=== PATIENT | male | born 1945 | race Caucasian/White ===

== ENCOUNTER 2018-02-21 10:03 | Inpatient (IN) | payer OTHER ==
[~2018-02-21] VITALS: Ht 170.2 cm; Wt 83.8 kg
--- NOTE | ~2018-02-21 | EKG ---
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
--- NOTE | ~2018-02-21 | PLAN ---
[facility] [place] [address] REHAB UNIT PLAN OF CARE Name: ALEXI CAMPBELL Room #: 504-1 ADM IN M.R.#: [id number] Admission: 02/21/18 Attend Phys: Emerson Coker MD Discharge: Date of : 43 Report #: [id number] THIS REPORT FOR: //name// CC: Emerson Coker [facility] unknown DATE OF SERVICE: 02/22/2018 POST-ADMISSION PHYSICIAN EVALUATION HISTORY OF PRESENT ILLNESS: The patient is a 72-year-old male who has a history of coronary artery disease with prior coronary artery bypass grafting, end-stage renal disease, on peritoneal dialysis, hyperlipidemia, peripheral neuropathy due to type 2 diabetes mellitus, anemia of chronic disease. He has a history of a stroke, hemorrhagic right thalamus, and underwent recent rehabilitation for this. He was able to return back home. He then began developing worsening tremoring with myoclonic jerking. He was admitted to [facility]. This was thought to be medication induced. He says his Keppra and Neurontin have now been stopped and he has been taken off his corticosteroids. He is showing improvement in the myoclonic jerking. He was noted to have a significant decline further in his functional mobility and ADLs with cognitive and communication concerns as well. He has now been admitted for acute in-hospital inpatient rehabilitation from [facility]. For further information regarding past medical history, social history, etc., please see the full admission note dictation by Tina Chou, nurse practitioner. MEDICATIONS: Please see the full medication listing. The Hospitalist Service has been involved. He was noted to be initially hypertensive upon admission. SOCIAL HISTORY: As noted above. He does live with his , 13 steps in. He has had 4 falls. Apparently, he will try to pickler helper something and then he will lose his balance and noted that he will fall onto his bottom. REVIEW OF SYSTEMS: The tremoring has more lately involved the left hand. No current complaints of chest pain, shortness of breath, or abdominal discomfort. PHYSICAL EXAMINATION: GENERAL: He is a pleasant 72-year-old white male, no obvious distress. He is alert, follows basic commands. VITAL SIGNS: Last recorded temperature 98.2, pulse 60, respirations 20, blood pressure 136/55. HEENT: Eyes: PERRL, EOMs full. Facies appeared symmetric. CHEST: Sounded clear to auscultation. CARDIAC: Regular rate and rhythm. ABDOMEN: Bowel sounds positive, nontender. Peritoneal dialysis catheter. NEUROLOGIC: Upper extremity, he does [place] [address] REHAB UNIT PLAN OF CARE Name: ALEXI CAMPBELL Room #: 504-1 [facility] IN ..#: [id number] Admission: 02/21/18 Attend Phys: Emerson Coker MD Discharge: Date of : 43 Report #: [id number] Functional range of motion. Strength is probably a grade 4-/5. No focal calf swelling. Needing assistance for basic functional mobility skills. ASSESSMENT: 1. Myoclonic jerking. 2. Recent right thalamic hemorrhage. 3. End-stage renal disease, on peritoneal dialysis. 4. Coronary artery disease status post coronary artery bypass graft. 5. Peripheral arterial disease. 6. Diabetes mellitus type 2 with peripheral neuropathy. 7. Hypertension. 8. Hyperlipidemia. 9. Obstructive sleep apnea, on CPAP. 10. Anemia of chronic disease. PLAN: From a post-admission physician evaluation perspective, there are no relevant changes since the preadmission screening. Please see the above review of prior and current medical and functional conditions and comorbidities. Please see the patient's previous and current functional status. As far as risk of complications, the patient has multiple medical comorbidities as noted above. The initial plan of care involves the interdisciplinary acute inpatient rehabilitation program with the goal of maximizing the patient's functional independence so that he can hopefully return back to his prior living situation. Measurable functional goals would be for the patient to become modified independent with transfers, mobility and ADLs as well as improvement with cognition. We will need to further assess what type of gait aids he needs. Prognosis is reasonably good with estimated length of stay probably at least 10 days to 2 weeks and potentially longer if warranted. Potential barriers would include his multiple medical comorbidities and decreased functional status. The patient meets diagnostic criteria for an acute in-hospital inpatient rehabilitation stay. He meets the medical necessity criteria and we will have the agricultural consultant physicians continue to follow. He does have the tolerance for therapies and has appropriate discharge goals back to the home setting. <ELECTRONICALLY SIGNED> By: Emerson Coker MD 03/02/18 1319 1127 1233 Emerson Coker MD /nt
--- NOTE | ~2018-02-21 | HC ---
[facility] [place] [address] CONSULTATION Name: ALEXI CAMPBELL Room #: 504-1 ADM IN M.R.#: [id number] Admission: 02/21/18 Attend Phys: Emerson Coker MD Discharge: Date of : 43 Report #: [id number] THIS REPORT FOR: //name// CC: Emerson [facility] unknown DATE OF SERVICE: 02/22/2018 REASON FOR CONSULTATION: End-stage renal disease, on PD. HISTORY OF PRESENT ILLNESS: This 72-year-old gentleman has been on peritoneal dialysis for the last 3 months. Last month, he had an acute CVA with some debility, which resolved without sequelae. He was in the hospital, became weak, went over to [facility], was improving, was home for 4 days, became weak again, was readmitted to the hospital for a week and now is here for more rehabilitation and currently is feeling stronger. He is up and about. He is still a little bit weak compared to his usual. PAST MEDICAL HISTORY: Longstanding diabetes mellitus and hypertension with progressive renal disease, end-stage renal disease and now on dialysis this year. He has had previous coronary artery disease, coronary bypass that was 29 years ago. He has had no subsequent problems with chest pain, angina, stents, etc. Diabetes has been complicated by little bit of peripheral neuropathy in his feet. No known retinopathy. He has also had some difficulty with hypertension. HOME MEDICATIONS: Include allopurinol 100 mg daily, atenolol 50 mg daily, cholecalciferol 1000 units daily, Plavix 75 mg daily, Cymbalta 20 mg daily, Procrit weekly, furosemide 80 mg b.i.d., insulin, renal vitamins, rosuvastatin 20 mg daily, Renvela 2400 mg with meals t.i.d., resveratrol 1000 mg at bedtime. I believe he takes insulin as well. FAMILY HISTORY: Positive for heart disease in both parents. His father also had diabetes. SOCIAL HISTORY: Remote smoker. No substantial alcohol for the most part, retired. REVIEW OF SYSTEMS: GENERAL: He has been feeling reasonably well. EYES: Vision okay with corrective lenses. ENT: Hearing okay, swallows okay. No mouth sores. ENDOCRINE: Positive for the diabetes. RESPIRATORY: No shortness of breath, pleuritic pain. CARDIAC: No chest pain, angina. Occasional leg swelling. GASTROINTESTINAL: No nausea, vomiting, diarrhea or bloody stools. [address] [address] CONSULTATION Name: ALEXI CAMPBELL Room #: 504-1 [facility] IN ..#: [id number] Admission: 02/21/18 Attend Phys: Emerson Coker MD Discharge: Date of : 43 Report #: [id number] GENITOURINARY: Continues to make reasonable amounts of urine without dysuria, hematuria or renal stones. NEUROLOGIC: He has got a little bit of numbness in the feet and a little bit of diffuse weakness. MUSCULOSKELETAL: No arthritis. PSYCHIATRIC: No depression or anxiety. PHYSICAL EXAMINATION: GENERAL: Bright, lucid, well-appearing gentleman, in good spirits. SKIN: Unremarkable. SKELETAL: Well developed, well nourished. HEENT: Extraocular movements are full. No scleral icterus. Hearing and vision intact. Mucous membranes moist. Tongue, buccal mucosa benign. NECK: Supple, without carotid bruits. CHEST: Completely clear to auscultation. HEART: Regular without murmurs, gallops or rubs. ABDOMEN: Soft and nontender. His exit site looks good. EXTREMITIES: Show trace peripheral edema. NEUROLOGIC: Grossly intact. LABORATORY DATA: Phosphorus has not been done. Hemoglobin is 9.8, platelets 614. Sodium 137, potassium 4.1, chloride 100, bicarbonate 25, creatinine 8.3, magnesium 2.8, calcium 9.2. ASSESSMENT AND PLAN: 1. End-stage renal disease. We will continue on peritoneal dialysis with overnight 1.5%, may need some hypertonic exchanges if he does well and also help with his hypertension. I will re-add amlodipine, which he has been on in the past. Continue on the atenolol, which he has been on currently. We will follow carefully along. 2. Hypertension, as above. Might need some ultrafiltration. 3. Diabetes mellitus. 4. History of cerebrovascular accident, almost totally recovered. 5. History of coronary bypass. <ELECTRONICALLY SIGNED> By: Jose Woods MD 03/03/18 1107 0929 1146 Jose Woods MD /nt
--- NOTE | ~2018-02-21 | EEG ---
[facility] [place] [address] ELECTROENCEPHALOGRAM Name: ALEXI CAMPBELL Room #: 504-1 [facility] IN M.R.#: [id number] Admission: 02/21/18 Attend Phys: Emerson Coker MD Discharge: 03/04/18 Date of : 43 Report #: [id number] THIS REPORT FOR: //name// CC: Emerson Coker [facility] unknown DATE OF SERVICE: 02/25/2018 This patient is being evaluated for the possibility of seizure. EEG was done by placing the electrode by standard 10-20 system of electrode placement. Both referential and sequential montages were used for recording. Background activity in this patient's EEG is about 9 Hz and 30 microvolts. That is a symmetrical activity. The patient went to sleep that is associated with bilaterally symmetrical sleep spindle and vertex sharp waves. Photic stimulation is unremarkable. Throughout the record, no active epileptiform activity was noticed. IMPRESSION: This patient's EEG does not demonstrate any clear-cut epileptiform activity. <ELECTRONICALLY SIGNED> By: Abilio Goins MD 03/05/18 1712 185 58 Abilio Goins MD /nt
--- NOTE | ~2018-02-21 | H ---
[facility] [place] [address] HISTORY AND PHYSICAL Name: ALEXI CAMPBELL Room #: 504-1 ADM IN M.R.#: [id number] Admission: 02/21/18 Attend Phys: Emerson Coker MD Discharge: Date of : 43 Report #: [id number] THIS REPORT FOR: //name// CC: Emerson Coker [facility] unknown DATE OF SERVICE: 02/21/2018 HISTORY OF PRESENT ILLNESS: This is a 72-year-old male. He was admitted to acute Inpatient Rehabilitation Unit from [facility]. He presented to [facility] initially with significant weakness and increase in tremors diagnosed as myoclonus and asterixis that was felt secondary to gabapentin and Keppra. Those medications were discontinued. The myoclonic jerking has significantly improved since then. The patient also has history of hemorrhagic stroke in the right thalamus that was recent and he went to [facility] after he had been home for approximately 2 weeks prior to presenting back to [facility]. The patient is now here for physical, occupational and speech therapies. Upon arrival to the unit, patient was noted to be very hypertensive. A rapid response team was called and he was given 2 doses of IV hydralazine approximately 10 minutes apart. Blood pressure initially was over 200 systolic and improved into the 160s systolic. He was asymptomatic, denying any nausea, vomiting, headache, dizziness, chest pain or shortness of air. Today, the patient's blood pressure is well controlled in the 130s/80s. He denies any headache, dizziness, cough, nausea, shortness of breath, constipation, dysuria. He does have pain in his great toe and 3 toes on the right foot that is secondary to peripheral neuropathy. He denies numbness or tingling. PAST MEDICAL HISTORY: Coronary artery disease status post CABG; end-stage renal disease, on peritoneal dialysis; hyperlipidemia; peripheral arterial disease; peripheral neuropathy; type 2 diabetes; anemia of chronic disease; benign prostatic hypertrophy; hemorrhagic stroke in the right thalamus; hypertension; gout; folic acid deficiency; depression. HABITS: He is a nonsmoker, nondrinker. No illicit drug use. SOCIAL HISTORY: The patient is a full code. He lives in a house with his . There are approximately one flight of stairs from the garage into the main living of the house. His bedroom and bathroom and all living is on one floor. Since his stroke, he had been utilizing a front-wheeled walker at home. He reports that he has had 4 falls according to his . He denies injury with those fall. Prior to his stroke, he was requiring no assistive device. Since his stroke, he has been able to perform ADLs independently. His and him share the IADL responsibilities. He has not driven since his stroke, but reports he would like to get back to driving eventually. [facility] [address] [place] [address] HISTORY AND PHYSICAL Name: ALEXI CAMPBELL Room #: 504-1 ADM IN M.R.#: [id number] Admission: 02/21/18 Attend Phys: Emerson Coker MD Discharge: Date of : 43 Report #: [id number] ALLERGIES: No known drug allergies. CURRENT MEDICATIONS: Cymbalta 20 mg daily, Plavix 75 mg daily, vitamin D 1000 units daily, allopurinol 100 mg daily, Renvela 2400 mg with meals, Lasix 80 mg twice a day, metoprolol 25 mg twice a day, Humalog before meals and at bedtime sliding scale insulin, Lantus 24 units subQ at bedtime, Tylenol 500 mg q. 4 hours p.r.n. pain, Compazine 5 mg q. 4 hours p.r.n. nausea, hydralazine 10 mg q. 4 hours p.r.n. hypertension. REVIEW OF SYSTEMS: Remainder of his 14-point review of systems is negative except as listed in HPI. PHYSICAL EXAMINATION: VITAL SIGNS: 135/55, respirations 20, pulse of 68, temperature 98.2. He is 95% oxygen on room air. GENERAL: He is awake, alert. He is oriented x 3. He appears in no acute distress. HEAD: Normocephalic. EYES: EOMs are intact. No icterus. ENT: No sinus tenderness. CHEST: Lungs are diminished throughout. No crackles. CARDIAC: Regular rate and rhythm, S1, S2, no murmur. ABDOMEN: Bowel sounds are positive, soft, nontender. Peritoneal dialysis catheter in place. GENITOURINARY: No CVA tenderness. EXTREMITIES: Trace ankle edema. Negative Homans sign. Able to lift lower extremities antigravity. Functional range of motion bilateral upper and lower extremities. Asterixis and essential tremor especially in the left hand. [employer] appears equal bilateral. Sensation appears grossly intact. He has no facial droop. He has no slurred speech. SKIN: Warm, dry and intact. LABORATORY DATA: From 02/22/2018, WBC is 8.3, hemoglobin 9.8, hematocrit 30.1, platelets 614. Sodium 137, potassium 4.1, BUN 55, creatinine 8.3, glucose 167. Troponin from 02/21/2018 negative. CPK 57 from 02/21/2018. ASSESSMENT AND PLAN: 1. Myoclonic jerking and asterixis. 2. Medical complexity with generalized debilitation. 3. Recent hemorrhagic right thalamic cerebrovascular accident. 4. End-stage renal disease, on peritoneal dialysis. 5. Uncontrolled hypertension. 6. Type 2 diabetes. 7. Premorbid peripheral neuropathy. 8. Hyperlipidemia. 9. Coronary artery disease with history of coronary artery bypass grafting. [facility] [address] [place] [address] HISTORY AND PHYSICAL Name: ALEXI CAMPBELL Room #: 504-1 ADM IN M.R.#: [id number] Admission: 02/21/18 Attend Phys: Emerson Coker MD Discharge: Date of : 43 Report #: [id number] 10. Peripheral arterial disease. 11. Obstructive sleep apnea, on home CPAP. 12. Anemia of chronic disease. PLAN: The patient will be on physical, occupational and speech therapies with his goal to return back to home. Hospitalist service is following for acute medical issues. Dr. Mcleod will see for neuropsychology testing. We will have weekly team conference. Please see extensive orders. <ELECTRONICALLY SIGNED> By: NATHAN Neumann 02/24/18 1439 1047 1152 NATHAN Neumann /nt
--- NOTE | ~2018-02-21 | HC ---
[facility] [place] [address] CONSULTATION Name: ALEXI CAMPBELL Room #: 504-1 ADM IN M.R.#: [id number] Admission: 02/21/18 Attend Phys: Emerson Coker MD Discharge: Date of : 43 Report #: [id number] THIS REPORT FOR: //name// CC: Emerson PEÑA unknown DATE OF SERVICE: 02/25/2018 CHIEF COMPLAINT: Ulceration of right fourth toe. HISTORY OF PRESENT ILLNESS: This is a 72-year-old male patient who I have been asked to see on the rehab floor due to an ulceration of his right fourth toe. He has had some ulceration there for quite some time. He has a history of end-stage renal disease, on peritoneal dialysis. He has a history of acute CVA. He has been having some myoclonic jerks, being evaluated for that. He notes pain in the lateral three toes of the right foot for quite some time. He denies any injury. He is unaware of his vascular status. PAST MEDICAL HISTORY: Positive for longstanding history of hypertension, diabetes, mellitus, and progressive renal disease. He now requires dialysis. He has a history of coronary artery disease status post coronary artery bypass that was 29 years ago. He does have peripheral neuropathy. MEDICATIONS: Include allopurinol, atenolol, cholecalciferol, Plavix, Cymbalta, Procrit, furosemide, insulin, rosuvastatin, Renvela, Resveratrol. FAMILY HISTORY: Positive coronary artery disease in both parents, as well as diabetes in his father. SOCIAL HISTORY: The patient has a history of smoking in the past. No substantial alcohol use. REVIEW OF SYSTEMS: CONSTITUTIONAL: The patient denies fever, chills or weight loss. NEUROLOGICAL: The patient has neuropathic pain. Denies focal weakness. ENT: The patient denies earache, nasal drainage, sore throat. CARDIOVASCULAR: The patient denies chest pain, palpitation or diaphoresis. PULMONARY: The patient denies cough or shortness of breath. GASTROINTESTINAL: The patient denies nausea, vomiting or abdominal pain. ORTHOPEDIC: The patient does complain of pain in his right foot as detailed above. Other systems in a 14-point review of systems are negative. PHYSICAL EXAMINATION: VITAL SIGNS: At this time include pulse 58, respiratory rate of 18, blood [address] [address] CONSULTATION Name: ALEXI CAMPBELL Room #: [address] [place] [address] [place] [facility].#: [id number] Admission: 02/21/18 Attend Phys: Emerson Coker MD Discharge: Date of : 43 Report #: [id number] pressure 151/56, temperature 97.4. GENERAL: This is a chronically ill-appearing male patient who appears to be in no distress. HEENT: Head normocephalic. Nose and throat are clear. NECK: Supple. LUNGS: Clear. HEART: Bowel sounds present. EXTREMITIES: Demonstrate diminished distal pulses, although there was good capillary refill is a small area of eschar on the dorsal aspect of the right fourth toe. No other evidence of cellulitis or any wounds on either foot or heels. CLINICAL IMPRESSION: 1. Diabetic foot ulcerations of the right foot. 2. End-stage renal disease, requiring dialysis. 3. Diabetes mellitus with peripheral neuropathy. 4. Peripheral arterial disease by clinical exam. RECOMMENDATIONS: At this point in time, the patient has an allergy to IODINE. We will do topical skin prep to keep the eschar intact. We would not recommend debridement at this time. We will check arterial Dopplers to evaluate him for large vessel vascular disease. All questions have been answered. I do appreciate being asked to see him in consultation. <ELECTRONICALLY SIGNED> By: Candido López MD 03/03/18 0920 1436 0859 Candido López MD /nt
--- NOTE | ~2018-02-21 | HC ---
[facility] [place] [address] CONSULTATION Name: ALEXI CAMPBELL Room #: 504-1 ADM IN M.R.#: [id number] Admission: 02/21/18 Attend Phys: Emerson Coker MD Discharge: Date of : 41 Report #: [id number] THIS REPORT FOR: //name// CC: Emerson Coker [facility] unknown DATE OF SERVICE: 02/26/2018 NEUROBEHAVIORAL STATUS EXAM ATTENDING PHYSICIAN: Emerson Coker MD PROPERTY INVESTOR: Travon Mcleod, PhD CLINICAL PRESENTATION: The patient is a 72-year-old male admitted to the rehab unit at [facility] for comprehensive rehabilitation program to improve functional mobility, activities of daily living and self-care and mental status as a result of deficits from myoclonic jerking and asterixis. His diagnoses also include medical complexity with general debility; recent hemorrhagic right thalamic CVA; end-stage renal disease, on peritoneal dialysis; uncontrolled hypertension; type 2 diabetes; premorbid peripheral neuropathy; hyperlipidemia; coronary artery disease with prior coronary artery bypass grafting; peripheral artery disease; obstructive sleep apnea and anemia of chronic disease. A complete description of his medical condition and history along with medications can be found in his medical record. Neuropsychological consultation was requested to provide assistance in the assessment of cognitive and emotional status and to provide recommendations and services. Prior to this most recent stroke, he was independent with driving and instrumental activities of daily living. He is with one child. 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 There is no reported history of alcohol/drug abuse, or treatment for mental disorder. His indicates that following the stroke and upon his initial return home, he was unable to successfully walk without the use of an aide. Insight in to deficits has been poor and he has had numerous falls from impulsivity and attempting to walk without using a walker. Balance continues to be poor, but improving. TECHNIQUES UTILIZED: Clinical interview, review of medical records, staff consultation and behavioral observation, mini-mental status exam 2 standard version and clock drawing. EXAMINATION FINDINGS: The patient was alert and cooperative with the assessment. He accurately described his stroke and the reason for admission. There is no evidence of aphasia. His thoughts are logical and goal oriented. There is no evidence of thought disorder. His mood appears mildly irritable. [address] [address] CONSULTATION Name: ALEXI CAMPBELL Room #: 504-1 [facility] IN ..#: [id number] Admission: 02/21/18 Attend Phys: Emerson Coker MD Discharge: Date of : 43 Report #: [id number] His suggests that he may be depressed as he has been having difficulty in adjustment to the limitations in functioning as a result of his stroke. The patient denied symptoms of depression or anxiety. His also describes some difficulty with his memory and word finding to the extent of verbal fluency following his stroke. Sleep, appetite is reported as within normal limits. He initially had anxiety with difficulty in ambulation. However, his anxiety has diminished as he has become more independent with walking. Performance on the MMSE 2 brief version is within normal limits with a raw score of 16/16. Performance on the MMSE 2 standard version is within normal limits with a raw score of 29/30. The patient was 5/5 for serial sevens, naming, repetition, comprehension, reading and writing were within normal limits. However, the patient did have difficulty in copying a simple geometric design. Additionally, he had difficulty with number placement in clock drawing suggesting a left visual field neglect. Difficulty with hand placement is also noted. Decreased insight into the extent of his deficits is suggested by his performance and consistent with a right CVA. 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 RECOMMENDATIONS: The patient has been taking Cymbalta as an antidepressant and continued use may be helpful. A followup neuropsychological evaluation to clarify the severity of deficits is suggested. Increased encouragement to recognize the limitations that the stroke has created to improve his self-awareness and overall insight to avoid safety issues. Thank you very much for allowing me to provide the consultation on this patient. <ELECTRONICALLY SIGNED> By: Travon Mcleod, PhD 02/27/18 2216 [id number] Travon Mcleod, PhD /nt
[2018-02-21 13:00] VITALS: BP 187/67; BP 208/62
[2018-02-21] MEDS ORDERED: TYLENOL EXTRA500 MG PO (13:44)
[2018-02-21] MEDS ORDERED: ALLOPURINOL 10100 M1 PO ×2 (13:44→16:40)
[2018-02-21] MEDS ORDERED: VITAMIN D1000 UNI1 PO (13:45)
[2018-02-21] MEDS ORDERED: ATENOLOL 50MG T50 M1 PO (13:45)
[2018-02-21] MEDS ORDERED: PLAVIX 75 MG TA75 M1 PO (13:46)
[2018-02-21] MEDS ORDERED: CYMBALTA20 MG PO (13:55)
[2018-02-21] MEDS ORDERED: EPOGEN2000 UNIT/ SUBQ (13:57)
[2018-02-21] MEDS ORDERED: LASIX 40 MG TAB40 M2 PO (13:58)
[2018-02-21] MEDS ORDERED: NOVOLOG100 UNIT/1 SUBQ ×2 (13:59→16:50)
[2018-02-21] MEDS ORDERED: LANTUS SUBQ (14:00)
[2018-02-21] MEDS ORDERED: RENAL VITAMIN0.8 MG PO (14:01)
[2018-02-21] MEDS ORDERED: ROSUVASTATIN CA20 MG PO (14:03)
[2018-02-21] MEDS ORDERED: RENVELA800 MG PO (14:04)
[2018-02-21] MEDS ORDERED: RESVERATROL250 MG PO (14:38)
[2018-02-21 14:49] LABS: HEMOGLOBIN 10.3 gm/dL (14.0-18.0); MCH 30.9 pg (26.0-34.0); MCHC 33.1 g/dL (28.0-37.0); MCV 93.4 fL (80.0-100.0); RBC 3.32 mil/uL (4.50-6.00); RDW 20.2 % (10.5-14.5); WBC 10.2 thou/uL (4.0-11.0)
[2018-02-21 14:56] LABS: CALCIUM 9.4 mg/dL (8.5-10.1); POTASSIUM 4.7 mmol/L (3.5-5.1)
[2018-02-21 14:57] LABS: MAGNESIUM 2.8 mg/dL (1.8-2.4)
[2018-02-21] MEDS ORDERED: NEURONTIN100 MG PO (16:35)
[2018-02-21] MEDS ORDERED: KEFLEX500 M1 PO (16:37)
[2018-02-21] MEDS ORDERED: LANTUS100 UNIT/M SUBQ (17:03)
[2018-02-21 17:16] VITALS: BP 143/55
[2018-02-21 19:35] VITALS: BP 148/53
[2018-02-22 01:00] VITALS: BP 130/49
[2018-02-22 04:07] VITALS: BP 169/54
[2018-02-22 04:30] LABS: CALCIUM 9.2 mg/dL (8.5-10.1); CREATININE 8.3 mg/dL (0.7-1.3); POTASSIUM 4.1 mmol/L (3.5-5.1)
[2018-02-22 04:31] LABS: HEMATOCRIT 30.1 % (42.0-52.0); HEMOGLOBIN 9.8 gm/dL (14.0-18.0); MCH 30.1 pg (26.0-34.0); MCHC 32.5 g/dL (28.0-37.0); MCV 92.6 fL (80.0-100.0); RBC 3.25 mil/uL (4.50-6.00); RDW 20.8 % (10.5-14.5); WBC 8.3 thou/uL (4.0-11.0)
[2018-02-22 07:15] VITALS: BP 136/55
[2018-02-22 12:30] VITALS: BP 153/54
[2018-02-22 17:00] VITALS: BP 148/55
[2018-02-22 19:10] VITALS: BP 177/52
[2018-02-23 00:02] VITALS: BP 123/45
[2018-02-23 04:05] VITALS: BP 119/47
[2018-02-23 05:49] LABS: ALBUMIN 1.7 g/dL (3.4-5.0); CALCIUM 8.6 mg/dL (8.5-10.1); CREATININE 8.8 mg/dL (0.7-1.3)
[2018-02-23 07:30] VITALS: BP 134/49
[2018-02-23 15:18] VITALS: BP 146/48
[2018-02-23 20:00] VITALS: BP 177/63
[2018-02-24 01:07] VITALS: BP 108/31
[2018-02-24 08:31] VITALS: BP 138/60
[2018-02-24 12:55] VITALS: BP 160/55
[2018-02-24 17:26] VITALS: BP 138/48
[2018-02-24 21:05] VITALS: BP 173/58
[2018-02-25 00:42] VITALS: BP 145/66
[2018-02-25 05:00] VITALS: BP 163/51
[2018-02-25 07:15] VITALS: BP 139/52
[2018-02-25 12:00] VITALS: BP 151/56
[2018-02-25 17:00] VITALS: BP 128/45
[2018-02-25 20:51] VITALS: BP 166/59
[2018-02-26] VITALS (7 sets, daily range): BP systolic 128–179; BP diastolic 45–63
[2018-02-26 05:59] LABS: ALBUMIN 1.7 g/dL (3.4-5.0); CALCIUM 8.5 mg/dL (8.5-10.1); CREATININE 8.6 mg/dL (0.7-1.3); PHOSPHORUS 6.1 mg/dL (2.5-4.9); POTASSIUM 3.3 mmol/L (3.5-5.1)
[2018-02-27 07:10] VITALS: BP 167/56
[2018-02-27 12:00] VITALS: BP 146/92
[2018-02-27 19:05] VITALS: BP 162/53
[2018-02-28 00:04] VITALS: BP 150/60
[2018-02-28 04:00] VITALS: BP 148/55
[2018-02-28 08:00] VITALS: BP 162/54
[2018-02-28 11:45] VITALS: BP 184/54
[2018-02-28 17:00] VITALS: BP 152/47
[2018-02-28 19:05] VITALS: BP 175/62
[2018-03-01 03:56] VITALS: BP 181/66
[2018-03-01 04:12] LABS: ALBUMIN 1.8 g/dL (3.4-5.0); CALCIUM 8.7 mg/dL (8.5-10.1); CREATININE 8.3 mg/dL (0.7-1.3); PHOSPHORUS 5.5 mg/dL (2.5-4.9); POTASSIUM 3.8 mmol/L (3.5-5.1)
[2018-03-01 07:31] VITALS: BP 186/56
[2018-03-01 12:36] VITALS: BP 161/44
[2018-03-01 17:06] VITALS: BP 155/54
[2018-03-01 19:07] VITALS: BP 168/44
[2018-03-02 00:57] VITALS: BP 129/41
[2018-03-02 09:07] VITALS: BP 145/58
[2018-03-02 11:25] VITALS: BP 142/55
[2018-03-02 17:51] VITALS: BP 136/44
[2018-03-02 20:50] VITALS: BP 180/54
[2018-03-03 01:35] VITALS: BP 181/60
[2018-03-03 04:45] VITALS: BP 118/64
[2018-03-03 06:47] LABS: HEMATOCRIT 29.9 % (42.0-52.0); HEMOGLOBIN 9.8 gm/dL (14.0-18.0); MCH 30.5 pg (26.0-34.0); MCHC 32.7 g/dL (28.0-37.0); MCV 93.2 fL (80.0-100.0); RBC 3.21 mil/uL (4.50-6.00); RDW 19.3 % (10.5-14.5); WBC 9.7 thou/uL (4.0-11.0)
[2018-03-03 07:07] LABS: ALBUMIN 1.7 g/dL (3.4-5.0); CALCIUM 8.7 mg/dL (8.5-10.1); CREATININE 8.1 mg/dL (0.7-1.3); PHOSPHORUS 4.5 mg/dL (2.5-4.9); POTASSIUM 3.2 mmol/L (3.5-5.1)
[2018-03-03 08:50] VITALS: BP 180/76
[2018-03-03] MEDS ORDERED: SENNA PLUS TAB1 EACH PO (13:21)
[2018-03-03] MEDS ORDERED: HYDRALAZINE 10M10 MG PO (13:21)
[2018-03-03] MEDS ORDERED: NORVASC5 MG PO (13:21)
[2018-03-03] MEDS ORDERED: LOPRESSOR25 PO (13:21)
[2018-03-03 17:25] VITALS: BP 178/90
[2018-03-03 21:25] VITALS: BP 169/64
[2018-03-04 00:30] VITALS: BP 159/60
[2018-03-04 07:15] VITALS: BP 167/61
[2018-03-04 09:23] VITALS: BP 167/61
== END 2018-03-04 13:52 | disposition home or self-care (01) | DRG 91 ==
LOC: ENTRNSPT 03-04 13:36
PROVIDERS: Internal Medicine; Internal Medicine Nephrology; Nurse Practitioner Family
PROC: 3E1M39Z Irrigation of Peritoneal Cavity using Dialysate, Percutaneous Approach (ICD-10-PCS; principal; 2018-02-21)
PROC: 3E1M39Z Irrigation of Peritoneal Cavity using Dialysate, Percutaneous Approach (ICD-10-PCS; 2018-02-22)
PROC: 3E1M39Z Irrigation of Peritoneal Cavity using Dialysate, Percutaneous Approach (ICD-10-PCS; 2018-02-23)
PROC: 3E1M39Z Irrigation of Peritoneal Cavity using Dialysate, Percutaneous Approach (ICD-10-PCS; 2018-02-24)
PROC: 3E1M39Z Irrigation of Peritoneal Cavity using Dialysate, Percutaneous Approach (ICD-10-PCS; 2018-02-25)
PROC: 3E1M39Z Irrigation of Peritoneal Cavity using Dialysate, Percutaneous Approach (ICD-10-PCS; 2018-02-26)
PROC: 3E1M39Z Irrigation of Peritoneal Cavity using Dialysate, Percutaneous Approach (ICD-10-PCS; 2018-02-27)
PROC: 3E1M39Z Irrigation of Peritoneal Cavity using Dialysate, Percutaneous Approach (ICD-10-PCS; 2018-02-28)
PROC: 3E1M39Z Irrigation of Peritoneal Cavity using Dialysate, Percutaneous Approach (ICD-10-PCS; 2018-03-01)
PROC: 3E1M39Z Irrigation of Peritoneal Cavity using Dialysate, Percutaneous Approach (ICD-10-PCS; 2018-03-02)
PROC: 3E1M39Z Irrigation of Peritoneal Cavity using Dialysate, Percutaneous Approach (ICD-10-PCS; 2018-03-03)
DX: G25.3 Myoclonus (principal); N18.6 End stage renal disease; I12.0 Hypertensive chronic kidney disease with stage 5 chronic kidney disease or end stage renal disease; I25.10 Atherosclerotic heart disease of native coronary artery without angina pectoris; E11.51 Type 2 diabetes mellitus with diabetic peripheral angiopathy without gangrene; E11.42 Type 2 diabetes mellitus with diabetic polyneuropathy; G47.33 Obstructive sleep apnea (adult) (pediatric); R27.8 Other lack of coordination; R53.81 Other malaise; E11.621 Type 2 diabetes mellitus with foot ulcer; L97.519 Non-pressure chronic ulcer of other part of right foot with unspecified severity; F01.50 Vascular dementia, unspecified severity, without behavioral disturbance, psychotic disturbance, mood disturbance, and anxiety; M10.9 Gout, unspecified; E78.2 Mixed hyperlipidemia; Z53.29 Procedure and treatment not carried out because of patient's decision for other reasons; D63.8 Anemia in other chronic diseases classified elsewhere; N40.0 Benign prostatic hyperplasia without lower urinary tract symptoms; Z99.2 Dependence on renal dialysis; Z86.73 Personal history of transient ischemic attack (TIA), and cerebral infarction without residual deficits; Z95.5 Presence of coronary angioplasty implant and graft; Z95.1 Presence of aortocoronary bypass graft; Z79.899 Other long term (current) drug therapy; Z79.02 Long term (current) use of antithrombotics/antiplatelets; Z82.49 Family history of ischemic heart disease and other diseases of the circulatory system; Z83.3 Family history of diabetes mellitus; Z87.891 Personal history of nicotine dependence; Z99.81 Dependence on supplemental oxygen; Z79.4 Long term (current) use of insulin
CPT/HCPCS: 10112; 33000

== ENCOUNTER 2018-04-21 10:00 | Inpatient (IN) | payer OTHER ==
[~2018-04-21] VITALS: Ht 167.6 cm; Wt 80.1 kg
--- NOTE | ~2018-04-21 | PLAN ---
[facility] [place] [address] REHAB UNIT PLAN OF CARE Name: ALEXI CAMPBELL Room #: 513-P ADM IN M.R.#: [id number] Admission: 04/21/18 Attend Phys: Emerson Coker MD Discharge: Date of : 43 Report #: [id number] THIS REPORT FOR: //name// CC: Emerson Coker [facility] unknown DATE OF SERVICE: 04/23/2018 The patient was seen earlier today. Last recorded temperature 36.4, pulse 84, respirations 18, blood pressure 136/70. He was in no distress. No calf swelling. Transfers with contact guard, gait, min assist 150 feet with a front-wheeled walker. Lower body dressing, moderate assistance. In speech, he has mild to moderate comprehensive deficits and moderate cognitive deficits. ASSESSMENT: 1. Multifactorial/metabolic encephalopathy. 2. End-stage renal disease, on peritoneal dialysis. 3. Recent right thalamic hemorrhagic cerebrovascular accident. 4. Hypoglycemia. 5. Diabetes mellitus type 2. 6. Premorbid peripheral neuropathy. 7. Bilateral paronychia on antibiotics. 8. Premorbid myoclonic jerking, which is significantly improved. 9. Coronary artery disease, status post history of coronary artery bypass grafting. 10. Peripheral arterial disease. 11. Hypertension. PLAN: The overall plan of care is based on the preadmission screen, post-admission physician evaluation and information garnered from therapy assessments. 1. Estimated length of stay is probably at least 10 days to 2 weeks. 2. Medical prognosis is reasonably good. 3. Anticipated interventions includes the interdisciplinary acute inpatient rehabilitation program with PT, OT, speech rehab nursing assisting regarding medication management, skin care prophylaxis, bowel, bladder issues and nursing education. Case management is involved as well as the interdisciplinary acute rehabilitation team and the [employer] sales consultant physicians. 4. Anticipated functional outcomes would be for the patient to improve with gait and mobility to achieve at least his prior functional level with a walker and also to improve as far as overall cognition, so that he can return back to the home setting. 5. Discharge destination would be back to the house with his . 6. Expected therapy by discipline includes PT, OT and speech 1 hour per day [address] [address] REHAB UNIT PLAN OF CARE Name: ALEXI CAMPBELL Room #: 513-P [facility] IN [facility].#: [id number] Admission: 04/21/18 Attend Phys: Emerson Coker MD Discharge: Date of : 43 Report #: [id number] each five days a week at the duration of the acute inpatient rehabilitation stay. By: [id number] Emerson Coker MD /nt
[~2018-04-21 10:00] MED LIST: ALLOPURINOL 10100 M1 PO; ATENOLOL 50MG T50 M1 PO; CYMBALTA20 MG PO; EPOGEN2000 UNIT/ SUBQ; HYDRALAZINE 10M10 MG PO; KEFLEX500 M1 PO; LANTUS SUBQ; LANTUS100 UNIT/M SUBQ; LASIX 40 MG TAB40 M2 PO; LOPRESSOR25 PO; NEURONTIN100 MG PO; NORVASC5 MG PO; NOVOLOG100 UNIT/1 SUBQ; PLAVIX 75 MG TA75 M1 PO; RENAL VITAMIN0.8 MG PO; RENVELA800 MG PO; RESVERATROL250 MG PO; ROSUVASTATIN CA20 MG PO; SENNA PLUS TAB1 EACH PO; TYLENOL EXTRA500 MG PO; VITAMIN D1000 UNI1 PO
[2018-04-21] MEDS ORDERED: NORCO 5-325 TA1 EACH PO (16:13)
[2018-04-21] MEDS ORDERED: NORVASC5 M1 PO (17:18)
[2018-04-21] MEDS ORDERED: SENNA8.6 MG PO ×2 (17:23→17:33)
[2018-04-21] MEDS ORDERED: DOXYCYCLINE 10100 M1 PO (17:24)
[2018-04-21] MEDS ORDERED: LISINOPRIL10 MG PO (17:28)
[2018-04-21] MEDS ORDERED: MIRALAX17 GM PO (17:31)
[2018-04-21] MEDS ORDERED: POTASSIUM20 PO (17:32)
[2018-04-21] MEDS ORDERED: TRAZODONE HCL50 MG PO (17:34)
[2018-04-21 20:47] VITALS: BP 161/68
--- NOTE | 2018-04-22 02:53 | NUR ---
assumed care at approx 1900 evening 04/21. pt had arrived approx 1830 via ambulance from [facility]. pt alert and oriented x4, somewhat forgetful and hard of hearing. pt set up with peritoneal dialysis before bedtime. pt took hs meds with no problems as ordered. pt up to bathroom to void and have bm once this night. pt appears to be sleeping soundly with hourly rounding checks. peritoneal dialysis at present with no problems. call light in reach. bed alarm on. will continue to monitor.
[2018-04-22 04:50] LABS: CREATININE 6.3 mg/dL (0.7-1.3); POTASSIUM 4.5 mmol/L (3.5-5.1)
[2018-04-22 04:56] LABS: HEMATOCRIT 42.9 % (42.0-52.0); HEMOGLOBIN 13.4 gm/dL (14.0-18.0); MCH 28.9 pg (26.0-34.0); MCHC 31.2 g/dL (28.0-37.0); MCV 92.7 fL (80.0-100.0); RBC 4.63 mil/uL (4.50-6.00)
--- NOTE | 2018-04-22 08:30 | NUR ---
cm visit with seth at bedside. pt still on his perineal dialysis. pt has been here before for acute rehab and dc home with outpt rehab at [facility], cont with nurse carlotta zamudio for home peritoneal dialysis. pt stated " well don't your remember me, i remember you"/alley. pt preferrs going by [facility], he stated " still same plan but this time i passed out or blacked out at outpt rehab, might been my blood sugar. 13 steps to main level of home, live with viki. have walker and care. shower chair. was pleased with rehab here so came back from hospital."/alley. education on team meetings and will cont following as needed for dc needs.
[2018-04-22 08:53] VITALS: BP 157/79
--- NOTE | 2018-04-22 15:19 | NUR ---
PATIENT UP WITH 1 PERSON ASSIST TO WHEELCHAIR. NAUSEOUS THIS SHIFT. AOX4, VERY FORGETFUL AND NEEDS FREQUENT REMINDERS FOR ACTIVITY. WOUND CONSULT COMPLETED THIS SHIFT. VOIDS PER URINAL. BED ALARM ON, CALLS FOR ASSIST. KUB COMPLETED THIS SHIFT.
--- NOTE | 2018-04-22 16:25 | NUR ---
DEPARTING RN AND CERTIFIED FRAUD EXAMINER ASKS THAT WE GIVE REPORT TO THE ONCOMING SHIFT THAT PT BE UNHOOKED FROM DIALYSIS IN THE A.M. I ASKED FOR NOTES, AND SHE STATED THE MACHINE WILL SIMPLY SIGNAL 'END OF THERAPY' AND THE NURSE IS TO UNHOOK PT'S LINE BY SIMPLY UNTWISTING, CAP THE PT'S LINE W/PROVIDED A MINICAP, AND THE IV BAG AND LINE CAN BE DISCARDED. BOOK IN ROOM OPENED TO PAGE SHOWING INSTRUCTIONS, WILL PASS INFORMATION ALONG TO ONCOMING REPORT
[2018-04-22 20:10] VITALS: BP 144/54
--- NOTE | 2018-04-23 02:17 | NUR ---
PT ASSESSMENT COMPLETED AND VSS. MEDS GIVEN ORDERED AND WELL TOLERATED. FALL PRECAUTIONS IN PLACE. PD DIALYSIS RUNNING AND WNL. CPAP ON AT HS. SAT MONITOR WNL. SNACK PROVIDED WITH HS INSULIN. ASST WITH REPOSITION USING PILLOWS FOR COMFORT. SLEEPING WELL. WILL CONTINUE TO MONITOR FREQUENTLY.
[2018-04-23 07:50] VITALS: BP 136/70
--- NOTE | 2018-04-23 19:39 | NUR ---
ASSUME PT CARE AT 0700. ALERT AND ORIENTED X4, FORGETFUL AT TIME, ABLE TO VOICE HIS NEEDS. PATIENT UP WITH 1 PERSON ASSIST TO WHEELCHAIR. UP TO DINNING ROOM FOR MEALS, APPETITE FAIR, ONLY ATE 25% DINNER. MEDS CRUSHED WITH APPLE SAUCE PER SPEECH THERAPIST SUGGESTED. KUB YESTERDAY IS NORMAL. DIALYSIS ON ABD INTACT, HAS SOME REDNESS AND DRESSING CHANGE BY DIALYSIS NURSE. PT IS ON PERITONEAL DIALYSIS EVERY NIGHT. OFFERED SUPPORTIVE CARE. VSS ON RA. C/O LITTLE DIZZINESS WHEN GET UP FOR PT. ENCOURAGED PT GET UP SLOWLY. GREAT TOES APPLIED ABT OINTMENT ORDERED. THEY ARE LOOK BETTER/ DRY. DAUGHTER WAS WITH PT AT DINNER TIME, PT HAD GOOD TIME TO TALK WITH HER. REFUSED MIRALAX THIS AM. GAVE MIRALAX AT DINNER TIME. GAVE REPORT TONIGHT NURSE TO CONTINUE TO MONITOR.
[2018-04-23 20:19] VITALS: BP 141/54
--- NOTE | 2018-04-24 00:25 | NUR ---
PT ASSESSMENT COMPLETED AND VSS. MEDS GIVEN ORDERED AND WELL TOLERATED. FALL PRECAUTIONS IN PLACE. PD RUNNING AND WNL. SNACK PROVIDED WITH HS INSULIN. SLEEPING WELL. WILL CONTINUE TO MONITOR FREQUENTLY.
[2018-04-24 07:55] VITALS: BP 119/48
[2018-04-24 08:23] VITALS: BP 155/71
--- NOTE | 2018-04-24 17:29 | HC ---
[facility] [place] [address] CONSULTATION Name: ALEXI CAMPBELL Room #: 513-P ADM IN M.R.#: [id number] Admission: 04/21/18 Attend Phys: Emerson Coker MD Discharge: Date of : 43 Report #: [id number] THIS REPORT FOR: //name// CC: Emerson Coker [facility] unknown DATE OF SERVICE: 04/23/2018 ATTENDING PHYSICIAN: Emerson Coker MD. ICE CREAM MAN: Travon Mcleod, PhD. CLINICAL PRESENTATION: The patient is a 72-year-old male admitted to the Rehab Unit at [facility] for comprehensive inpatient rehabilitation program to improve functional mobility, activities of daily living and mental status secondary to deficits from acute encephalopathy and hypoglycemia. The patient's assessment includes end-stage renal disease, on peritoneal dialysis; type 2 diabetes mellitus; recent right thalamic hemorrhage CVA; premorbid peripheral neuropathy; bilateral paronychia, on antibiotics; premorbid myoclonic jerking, significantly improved; coronary artery disease status post coronary artery bypass graft; peripheral artery disease; hypertension; obstructive sleep apnea, with home CPAP; and hyperlipidemia. A complete description of his medical condition and history along with medications can be found in his medical record. Neuropsychological consultation was requested to provide assistance in the assessment of cognitive and emotional status and to provide recommendations and services. The patient has been living independently with the assistance of his in their home. His description of the reason for his hospitalization is limited. He indicates having gone to an appointment and then awakening in the hospital. Specific recall of the events preceding this recent decline in cognitive functioning are limited. The patient was seen during a previous hospitalization on rehab in 01/2018. He is , with one child. 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 His and daughter are supportive. There is no history of alcohol/drug abuse. He is reported to have been more sedentary and lethargic at home with symptoms that suggested depression and the use of antidepressant medication was initiated. Prior to this most recent medical event and contributing to the encephalopathy was possible hypoglycemia, medication with sedating features, and probable malfunction of a peritoneal dialysis catheter. His dialysis catheter, was declogged by Interventional Radiology and repositioned. Additionally, [place] [address] CONSULTATION Name: ALEXI CAMPBELL Room #: 513-P [facility] IN .R.#: [id number] Admission: 04/21/18 Attend Phys: Emerson Coker MD Discharge: Date of : 43 Report #: [id number] TECHNIQUES UTILIZED: Clinical interview, review of medical records, staff consultation and behavioral observation, Mini Mental Status Exam 2 standard version and verbal fluency assessment (letter and category and clock drawing). EXAMINATION FINDINGS: The patient was alert and cooperative with the assessment. There is no evidence of aphasia. His thoughts are logical and goal oriented. There is no evidence of thought disorder. There is no report of auditory or visual hallucinations. There is no suicidal ideation. The patient reports some anxiety in regard to his recovery and frustration with multiple medical conditions that affect his independence. and He does not report difficulty with appetite. His energy level and endurance is poor. His family has commented on his hypersomnolance and decreased interest and engagement in formally pleasurable activity. His performance on the MMSE 2 brief version is in the mild range of impairment with a raw score of 13/16 and a T-score of 34. He was 3/3 for initial registration, 5/5 for orientation to time and place. He was 0/3 for immediate recall of 3 items after a brief time delay and distraction. Performance on the MMSE 2 standard version was 26/30 with a T-score of 42 indicating an overall improvement in functioning. He was 5/5 for serial sevens, 2/2 for naming, 1/1 for repetition, 3/3 for comprehension. He could read and follow single command and write a sentence. The patient had difficulty with copying a simple geometric design. His performance was 26/30, which is a T-score of 42 and a percentile rank of 21. Performance on letter fluency was in the borderline range with a raw score of 15, T-score of 35, and percentile rank of 7. Category fluency is extremely low with a raw score of 23 and a T-score of 26, which is at the 1st percentile. Overall, total fluency was extremely low with a T-score of 28 and percentile rank of 1. He reports frustration with diminished verbal fluency. The patient was able to draw a clock. However, while hand placement was adequate, the positioning of the numbers reflected visual spatial disorganization. His inability to copy a simple geometric design also suggests visual spatial and perceptual deficits. The patient is presenting with a decline in neurocognitive functioning. Deficits in memory, visual spatial construction and verbal fluency are noted. Depression is also suggested. DIAGNOSTIC IMPRESSION: Neurocognitive disorder due to multiple medical etiology including vascular disease, without behavior disorder -- extent to be determined, likely [facility] [address] [place] [address] CONSULTATION Name: ALEXI CAMPBELL Room #: 513-P ADM IN M.R.#: [id number] Admission: 04/21/18 Attend Phys: Emerson Coker MD Discharge: Date of : 43 Report #: [id number] in the moderate range. Adjustment disorder with depressed mood. RECOMMENDATIONS: Continued use of an antidepressant medication. Verbal praise and complements along with an emphasis on his resilience as he has recovered from multiple medical events throughout his life. An emphasis on his ability to recover from acute medical events will also improve his sense of self-confidence and optimism about his overall recovery. The patient will require assistance in the management of medication, finances and nutrition. Continued involvement of his with assisting in his medical care will be necessary for him to maintain safety. Compensatory strategies to assist with cognition and specifically verbal fluency is also indicated. Thank you very much for allowing me to provide the consultation on this patient. <ELECTRONICALLY SIGNED> By: Travon Mcleod, PhD 04/24/18 1729 [id number] Travon Mcleod, PhD /nt
--- NOTE | 2018-04-24 18:31 | NUR ---
ASSUMED CARE AT 0730. PT HAD JUST BEEN GIVEN PAIN PILL PRIOR TO SHIFT CHANGE AND DENIED PAIN FOR THIS SHIFT. PT STAYED IN ROOM ENTIRE SHIFT. DAUGHTER STAYED MOST OF DAY IN ROOM WITH PATIENT. PT HAD POOR APPETITE TODAY. PT VERY FRIENDLY AND CONVERSED ALOT TODAY. PT GOT UP WITH NURSING WITH WALKER AND GAIT BELT TO THE BATHROOM. PT CALLS OUT APPROPRIATELY.
[2018-04-24 19:54] VITALS: BP 134/37
[2018-04-24 21:17] VITALS: BP 139/58
[2018-04-25 08:10] VITALS: BP 175/77
[2018-04-25 10:20] VITALS: BP 139/83
[2018-04-25 12:15] LABS: ALBUMIN 1.6 g/dL (3.4-5.0); CALCIUM 9.2 mg/dL (8.5-10.1); PHOSPHORUS 5.5 mg/dL (2.5-4.9); POTASSIUM 5.9 mmol/L (3.5-5.1)
--- NOTE | 2018-04-25 18:40 | NUR ---
Assumed pt care at 7am.Pt in and out of bed today for all activities. Assessment completed.vss.Blood sugar early this shift was 50 but wast treated with juice and breakfast.Pt has good appetite.Dr Woods here,order noted. Family here later this shift to visit,updates given.PD set up for tonight by hemodialysis personnel.Bed alarm in use for pt safety.Rn encouraged pt to call for needs.No verbal c/o.Will continue to monitor.
[2018-04-25 19:50] VITALS: BP 126/59
--- NOTE | 2018-04-26 05:57 | NUR ---
ON PERITONEAL DIALYSIS OVERNIGHT, HAS BEEN UP TO BATHROOM TO VOID TWICE. IN GENERAL, HE IS AWARE OF WHICH MEDS HE IS TAKING, BUT ADMITS THAT HE IS FORGETFUL AND TONIGHT HE HAS NOT USED HIS CALL LIGHT PRIOR TO GETTING OUT OF BED. COOPERATES WITH PLACING GAIT BELT ON SUPERIOR TO PD CATH AMD USING WALKER, PT NEEDS CONTACT GUARD ASSIST FOR SAFETY HE LEANS BACK WHILE VOIDING. HIS TOES ARE TENDER. BLOOD SUGAR WAS 134 LAST EVENING, ONLY INSULIN GIVEN WAS 24 UNITS LANTUS INSULIN WHICH HE VERIFIED THE NUMBER AND CALLED IT HIS LONG-ACTING INSULIN.
[2018-04-26 11:42] LABS: CALCIUM 8.7 mg/dL (8.5-10.1); CREATININE 7.4 mg/dL (0.7-1.3); POTASSIUM 5.9 mmol/L (3.5-5.1)
[2018-04-26 11:46] LABS: ALBUMIN 1.5 g/dL (3.4-5.0)
--- NOTE | 2018-04-26 19:05 | NUR ---
ASSUMED CARE AT APPROX 0715. PATIENT A/O X4, FORGETFUL AT TIMES. REORIENTED TO CALL FOR ASSITANCE. UP X2 ASSIST, UNSTEADY. INCREASED JERKING MUSCLE SPASMS, PROVIDER NOTIFIED. BLOOD SUGARS MONITORED. LABS MONITORED, PROVIDER NOTIFIED, ORDERS RECEIVED. IV TEAM STARTED NEW IV IN PATIENT'S RIGHT UPPER ARM. PT STARTED TO HAVE DIARRHEA RELATED TO KAYEXELATE ADMINISTRATION. BRIEF ON FOR INCONTINENCE, TO PROTECT PD DRESSING. PD DIALYSIS STARTED BY BEAUTY OPERATOR APPRENTICE. PATIENT'S FAMILY VISITED, EDUCATED ON MEDICATION ORDERS. FALL PRECAUTIONS IN PLACE. RESTING IN BED AT SHIFT CHANGE.
[2018-04-26 20:20] VITALS: BP 130/64
--- NOTE | 2018-04-27 03:06 | NUR ---
PT ASSESSMENT COMPLETED AND VSS. MEDS GIVEN ORDERED AND WELL TOLERATED. FALL PRECAUTIONS IN PLACE. PD RUNNING. INSULIN GIVEN WITH SNACK. SUPPORTIVE FAMILY IN TO SEE PT EARLY. SAT WNL ON 2L NC AT HS. VOIDING MODERATE AMOUNT PER URINAL. SLEEPING WELL. WILL CONTINUE TO MONITOR FREQUENTLY.
[2018-04-27 06:14] LABS: CALCIUM 8.4 mg/dL (8.5-10.1); CREATININE 7.1 mg/dL (0.7-1.3)
[2018-04-27 06:15] LABS: POTASSIUM 4.8 mmol/L (3.5-5.1)
--- NOTE | 2018-04-27 07:38 | HC ---
[facility] [place] [address] CONSULTATION Name: ALEXI CAMPBELL Room #: 513-P ADM IN M.R.#: [id number] Admission: 04/21/18 Attend Phys: Emerson Coker MD Discharge: Date of : 43 Report #: [id number] THIS REPORT FOR: //name// CC: Emerson Coker [facility] unknown DATE OF SERVICE: 04/22/2018 CHIEF COMPLAINT: Toe ulcerations. HISTORY OF PRESENT ILLNESS: This is a 72-year-old male patient with whom I am familiar from previous hospitalization. The patient had been hospitalized in January of this year and into March and had areas of ulceration on the tips of his toes. He developed some increased drainage from his left great toe. Recently, he has been on some oral antibiotic and I have been asked to see him again with regard to ongoing wound care. The patient has had a previous cerebrovascular accident, has a history of end-stage renal disease and requires peritoneal dialysis. PAST MEDICAL HISTORY: Longstanding history of hypertension, diabetes, progressive renal disease, coronary artery disease, status post coronary bypass graft surgery, peripheral neuropathy. MEDICATIONS: Include allopurinol, atenolol, cholecalciferol, Plavix, Cymbalta, Procrit, furosemide, insulin, rosuvastatin, Renvela, and resveratrol. FAMILY HISTORY: Positive for coronary artery disease in both parents, as well as diabetes in his father. SOCIAL HISTORY: The patient has history of smoking in the past. No substantial alcohol use. REVIEW OF SYSTEMS: CONSTITUTIONAL: The patient denies fever, chills, weight loss. NEUROLOGICAL: The patient denies focal weakness. He does have some numbness of his lower extremities. ENT: The patient denies earache, nose, sore throat. CARDIOVASCULAR: The patient denies chest pain, palpitation or diaphoresis. PULMONARY: The patient denies cough or shortness of breath. GASTROINTESTINAL: The patient denies nausea, vomiting or abdominal pain. ORTHOPEDIC: The patient does complain of some the ulcerations on his toes. He has a little bit of pain associated with the left great toe. Other systems in a 14-point review of systems are negative. PHYSICAL EXAMINATION: [facility] [address] [place] [address] CONSULTATION Name: ALEXI CAMPBELL Room #: 513-P [facility] IN ..#: [id number] Admission: 04/21/18 Attend Phys: Emerson Coker MD Discharge: Date of : 41 Report #: [id number] VITAL SIGNS: At this time include pulse rate 94, respiratory rate 16, blood pressure 157/79, temperature 98.3. GENERAL: This is a chronically ill appearing male patient, distress. HEENT: Normocephalic. NECK: Supple. LUNGS: Clear. HEART: Regular. ABDOMEN: Soft. Bowel sounds are present. EXTREMITIES: Demonstrate palpable distal pulses. He has few small eschars on the tips of some of his toes on the right foot. He has a small area of crusting involving the medial nail fold of his left great toe. It is not overtly infected at this time. CLINICAL IMPRESSION: Multiple ulcerations to the tips of toes on both feet with perhaps evidence of small area of resolving cellulitis of the left great toe. RECOMMENDATIONS: At this point in time, we will recommend a small amount of gentamicin ointment to all affected areas to be changed daily. The left great toe will be dressed with Xeroform gauze and a dry gauze secondary dressing once again daily. We will continue to follow him here while here in the hospital. I appreciate being asked to see him in consultation. <ELECTRONICALLY SIGNED> By: Candido López MD 04/27/18 0738 [id number] [id number] Candido López MD /nt
[2018-04-27 07:40] VITALS: BP 128/46
[2018-04-27 10:00] VITALS: BP 136/61
--- NOTE | 2018-04-27 10:42 | NUR ---
PATIENT HAD A SIGNIFICANT MYOCLONIC EPISODE WITH P.T. THIS AM. DEFERRED TREATMENT UNTIL THIS AFTERNOON TO GIVE PATIENT TIME TO REST.
--- NOTE | 2018-04-27 14:40 | NUR ---
ASSUMED CARE AT APPROX 0715. PATIENT A/O X4. VSS. PD DIALYSIS CATHETER DRESSISNG C/D/I. C/O PAIN IN LEFT SHOULDER AFTER THERAPY. TYLENOL ADMINISTERED, HEATING PAD APPLIED TO LEFT SHOULDER, PT REPORTED RELIEF. PATIENT FELT UNSTEADY DURING PT, PHYSICAL THERAPIST REPORTED PATIENT HAD JERKING MUSCLE MOVEMENTS AND WAS TRANSFERED TO WHEELCHAIR. VITALS AND BLOOD SUGAR ASSESSED- VSS, BLOOD GLUCOSE 179. NEUROLOGY CONSULT CALLED, NO FURTHER ORDERS AT THIS TIME. PATIENT GIVEN TIME TO REST, PARTICIPATED IN AFTERNOON THERAPY. FALL PRECAUTIONS IN PLACE. WILL CONTINUE TO MONITOR.
[2018-04-27 19:24] VITALS: BP 124/47
[2018-04-27 20:34] LABS: TSH 2.01 uIU/mL (0.358-3.740)
--- NOTE | 2018-04-28 01:57 | NUR ---
assumed care at approx 1900 evening 04/27. pt had just returned from [place] at change of shift. pt assisted into bed and dialysis nurse setting pt up for nightime peritoneal dialysis. pt took hs meds with water tolerating well. pt receiving pd at present and no problems encountered at this point. 02 at 2l per n/c. pt appears to be sleeping soundly with hourly rounding checks. bed alarm on and call light in reach. will continue to monitor.
[2018-04-28 05:36] LABS: HEMATOCRIT 37.7 % (42.0-52.0); HEMOGLOBIN 11.9 gm/dL (14.0-18.0); MCH 28.7 pg (26.0-34.0); MCHC 31.6 g/dL (28.0-37.0); MCV 90.6 fL (80.0-100.0); PLATELET COUNT 624 thou/uL (150-400); RBC 4.16 mil/uL (4.50-6.00); RDW 16.4 % (10.5-14.5); WBC 8.9 thou/uL (4.0-11.0)
[2018-04-28 06:00] LABS: ALBUMIN 1.5 g/dL (3.4-5.0); CALCIUM 8.6 mg/dL (8.5-10.1); CREATININE 7.2 mg/dL (0.7-1.3); MAGNESIUM 1.8 mg/dL (1.8-2.4); PHOSPHORUS 5.8 mg/dL (2.5-4.9)
[2018-04-28 06:29] LABS: ABSOLUTE NEUTROPHILS 5.5 thou/uL (1.4-8.2)
[2018-04-28 06:30] LABS: LARGE PLATELETS FEW; PLATELET ESTIMATE INCREASED
[2018-04-28 07:42] VITALS: BP 171/54
--- NOTE | 2018-04-28 10:00 | NUR ---
ASSUMED PT CARE AT 0700. ASSESSED PT AT 0750. PT IN BED GRIMACING. REPORTS BACK PAIN RATED 9/10, STATES TYLENOL DID NOT HELP. DRESSING TO LEFT GREAT TOE IS CLEAN,DRY,INTACT. DRESSING TO DIALYSIS SITE CLEAN,DRY,INTACT. PT ALERT AND ORIENTED X4. ASSESSMENT IS CHARTED. VSS. WILL CONTINUE WITH PLAN OF CARE AND SPEAK TO PHYSICIAN ABOUT FURTHER PAIN MANAGEMENT OPTIONS.
--- NOTE | 2018-04-28 13:04 | NUR ---
team meeting, recommendation, home health ( pt,ot,st, nursing and possible bath aid), cont with perineal dialysis at home. will discuss with pt and . will cont following as needed for dc needs.
--- NOTE | 2018-04-28 13:23 | H ---
[facility] [place] [address] HISTORY AND PHYSICAL Name: ALEXI CAMPBELL Room #: 513-P ADM IN M.R.#: [id number] Admission: 04/21/18 Attend Phys: Emerson Coker MD Discharge: Date of : 43 Report #: [id number] THIS REPORT FOR: //name// CC: Emerson Coker [facility] unknown DATE OF SERVICE: 04/21/2018 POSTADMISSION PHYSICIAN EVALUATION HISTORY OF PRESENT ILLNESS: The patient is a 72-year-old white male previously known to us, who was admitted to [facility] with mental status changes and initial unresponsiveness. He was diagnosed with an acute encephalopathy, felt contributed from hypoglycemic medications and sedatives and probable malfunction of peritoneal dialysis catheter. It was surgically declogged by Interventional Radiology with wire manipulation and aggressive flushing. His medications were adjusted. He was found to have bilateral toe paronychia and was started on doxycycline. He had electrolyte abnormalities that were replaced. He has a prior history of recent hemorrhagic stroke and myoclonic jerking movements that improved since his prior admission. He is admitted for acute in-hospital inpatient rehabilitation. He is noted to have a metabolic encephalopathy/multifactorial. As far as past medical history, social history, allergies, habits, please see the full dictation from Tina Chou, nurse practitioner. MEDICATIONS: See the full medication list. These include vitamins, herbals, and supplements. REVIEW OF SYSTEMS: He had some nausea and had emesis earlier. He is feeling better now. A KUB has been ordered and the hospitalist service is involved. PHYSICAL EXAMINATION: GENERAL: He is a pleasant 72-year-old white male in no obvious distress. VITAL SIGNS: Last recorded temperature 98.3, pulse 94, respirations 16, blood pressure 157/79. NEUROLOGIC: He is alert. There is a latency to his responses. He will follow basic 1 step commands. He was noted to have [id number]-be-[id number] cognitive deficits prior to transfer. HEENT: EOMs appeared full. Facies were symmetric. CHEST: Sounded clear to auscultation. CARDIOVASCULAR: Regular rate and rhythm. ABDOMEN: Bowel sounds positive, nontender. GENITOURINARY AND RECTAL: Deferred. He does have a peritoneal dialysis catheter. EXTREMITIES: Functional range of motion of both upper extremities. He had [facility] [address] [place] [address] HISTORY AND PHYSICAL Name: ALEXI CAMPBELL Room #: 513-[facility] IN ..#: [id number] Admission: 04/21/18 Attend Phys: Emerson Coker MD Discharge: Date of : 43 Report #: [id number] prior myoclonic jerking and asterixis, but that is much improved. Mahajan's is negative, Homans' is negative. Lower extremities, functional range of motion, strength is a grade 4-/5. Transfers are mod assist, short distance ambulation is min assist, lower body dressing is mod assist. ASSESSMENT: 1. Multifactorial/metabolic encephalopathy. 2. End-stage renal disease, on peritoneal dialysis. 3. Recent right thalamic hemorrhagic cerebrovascular accident. 4. Hypoglycemia. 5. Diabetes mellitus type 2. 6. Premorbid peripheral neuropathy. 7. Bilateral paronychia, on antibiotics. 8. Nausea with emesis. Workup currently underway with hospitalist involved. 9. Premorbid myoclonic jerking, which has significantly improved. 10. Coronary artery disease, status post history of coronary artery bypass grafting. 11. Peripheral arterial disease. 12. Hypertension. PLAN: From a postadmission physician evaluation perspective, there are no relevant changes since the preadmission screening. Please see the above review of prior and current medical and functional conditions and comorbidities. Please see the patient's previous and current functional status. As far as risk of complications, the patient does have multiple medical comorbidities as noted above. Initial plan of care involves the interdisciplinary acute inpatient rehabilitation program with goal of maximizing the patient's functional independence, so that he can hopefully return back to his prior living situation. Measurable functional goals would be for him to become modified independent with transfers, mobility and ADLs and improvement in cognition, so that he can return back to the home setting. Prognosis is reasonably good with estimated length of stay probably at least 10 days to 2 weeks pending progress. Potential barriers would include his multiple medical comorbidities and decreased functional status. The patient meets diagnostic criteria for an acute in-hospital inpatient rehabilitation stay. He meets medical necessity criteria and we will have the technology applications consultant physicians involved. He has the tolerance for therapies and has appropriate discharge goals back to the home setting. <ELECTRONICALLY SIGNED> By: Emerson Coker MD 04/28/18 1323 [id number] 1602 Emerson Coker MD /nt
--- NOTE | 2018-04-28 14:00 | NUR ---
cm requested rt , and family has questions. concerned about seth being able to make it up and down 13 stairs at home and wanting to speak with therapy to ensure he can do stairs prior to going home, because i have chf and cant lift or ronen him"/viki. information passed on to therapy to communicate with pt viki.
--- NOTE | 2018-04-28 16:09 | NUR ---
PT DOING WELL THIS SHIFT. PARTICIPATED IN THERAPY AND TOLERATED WELL. PAIN IN BACK MORE UNDER CONTROL, RATES 5/10. DICLOFENAC APPLIED TO BACK AND NECK ORDERED FOR PAIN. PT SLEEPING AT THIS TIME. NO NEW CONCERNS.
[2018-04-28 19:40] VITALS: BP 160/52
--- NOTE | 2018-04-29 03:23 | NUR ---
UP WITH MIN ASSIST, SBA WALKING WITH GAIT BELT AND WALKER AND WHEN SITTING ON TOILET, CONTACT GUARD WHILE STANDING FOR SAFETY DUE TO MINIMAL BACKWARD LEAN. BLANKETS TAKEN OFF FEET TO ELIMINATE FRESSURE ON TENDER TOES. SENNEKOT GIVEN PER REQUEST.
[2018-04-29 07:25] VITALS: BP 162/66
--- NOTE | 2018-04-29 10:53 | NUR ---
ASSUMED CARE AT 0700. PATIENT IS ALERT AND ORIENTED X4. PATIENT TROTTER'S. INSOLE BEVELER ARE EQUAL. LUNGS ARE CLEAR. ABD IS SOFT WITH BSX4. PATIENT HAS INTACT PERITONEAL CATHETER IN PLACE IN HIS LEFT LOWER ABD AREA. PATIENT IS SBA WITH WALKER TO THE BATHROOM AND 1 STAFF ASSIST. NO ARM TREMORS NOTED AT THIS TIME. PATIENT HAS LEFT ARM S.L. THAT IS PATIENT AND INTACT. PATIENT CONTINUES ON ORAL ABT AND IS TOLERATING THE ABT WITHOUT S.E. SCREW MACHINE SET UP OPERATOR HERE TO SEE PATIENT. FALL AND SAFETY PROTOCOLS IN PLACE. DENIES ANY PAIN. CONTINUES TO PROGRESS TOWARDS D/C GOALS. WILL CONTINUE TO MONITER
--- NOTE | 2018-04-29 15:16 | NUR ---
FAXED REFERRAL TO [facility] SPOKE WITH LUPIS IN ADM. AND SHE REVIEWED REFERRAL AND WILL ACCEPT PT. AT DISCHARGE. DCP TO FOLLOW.
--- NOTE | 2018-04-29 16:40 | NUR ---
WOUND FOLLOW UP: PT. WAS SEEN TODAY BY DR. VILLEDA AND MYSELF. PT. TOES ARE CLINCALLY BETTER THAN LAST ASSESMENT. RECOMMENDATIONS: CONTINUE WITH CURRENT PLAN OF CARE. PT. AND STAFF NURSE WERE INSTRUCTED ON WOUND CARE.
[2018-04-29 19:53] VITALS: BP 177/77
--- NOTE | 2018-04-30 02:00 | NUR ---
ASKING FOR ASSIST UP TO BATHROOM TONIGHT, GAIT BELT, WALKER, AND STANDBY ASSIST. HE IS NO LONGER LEANING BACKWARDS WHEN VOIDING, BUT TYPICALLY SITS TO VOID PLUS HE HAD A GOOD BOWEL MOVENENT. PERITONEAL DIALYSIS, BENADRYL GIVEN DUE TO PATIENT C/O NO SLEEP IN THE PAST FEW NIGHTS. STATES TOES LESS PAINFUL THAN LAST OVERNIGHT.
[2018-04-30 03:57] LABS: HEMATOCRIT 38.4 % (42.0-52.0); HEMOGLOBIN 12.4 gm/dL (14.0-18.0); MCH 29.1 pg (26.0-34.0); MCHC 32.3 g/dL (28.0-37.0); MCV 90.1 fL (80.0-100.0); PLATELET COUNT 593 thou/uL (150-400); RBC 4.27 mil/uL (4.50-6.00); RDW 16.3 % (10.5-14.5)
[2018-04-30 04:11] LABS: ALBUMIN 1.7 g/dL (3.4-5.0); CALCIUM 8.7 mg/dL (8.5-10.1); CREATININE 6.9 mg/dL (0.7-1.3); MAGNESIUM 1.9 mg/dL (1.8-2.4); PHOSPHORUS 5.1 mg/dL (2.5-4.9); POTASSIUM 3.6 mmol/L (3.5-5.1)
[2018-04-30 04:27] LABS: ABSOLUTE NEUTROPHILS 4.3 thou/uL (1.4-8.2); ANISOCYTOSIS 1+
[2018-04-30 09:15] VITALS: BP 159/71
--- NOTE | 2018-04-30 16:34 | NUR ---
ASSUMED CARE AT APPROX 0715. PATIENT A/O X4. C/O PAIN IN BACK OF NECK AND IN BILATERAL GREAT TOES. WOUND CARE TO TOES COMPLETE. PATIENT PARTICIPATED IN THERAPY. VSS. RENAL PHYSICIAN ROUNDED, ORDERS RECEIVED. PATIENT STATES HE WILL SEE HOT SEALING MACHINE OPERATOR ON WEDNESDAY. FALL PRECAUTIONS IN PLACE. WILL CONTINUE TO MONITOR.
[2018-04-30 19:24] VITALS: BP 139/45
--- NOTE | 2018-05-01 03:26 | NUR ---
Assumed pt care at 1900. Pt A&Ox4, able to make needs known, pleasant and cooperative with nursing cares. SBA x1 with gaitbelt for ambulation to bathroom. Medicated at HS for c/o inability to sleep, effectiveness noted as pt has rested well throughout the NOC without further c/o insomnia. Reports improved pain in bilat toes. Continues on peritoneal dialysis throughout NOC. will continue to monitor pt.
[2018-05-01 07:30] VITALS: BP 157/48
[2018-05-01 20:11] VITALS: BP 145/78
--- NOTE | 2018-05-02 04:44 | NUR ---
PT AMBULATING TO BATHROOM WITH ASSIST X1 AND IS TOLERATING FAIR. LORTAB PROVIDING PAIN RELIEF. RESTING COMFORTABLY. NO NEEDS VOICED. CALL LIGHT WITHIN REACH. WILL CONTINUE TO POVIDE FREQUENT OBSERVATION.
[2018-05-02 06:25] LABS: ALBUMIN 1.7 g/dL (3.4-5.0); CALCIUM 9.1 mg/dL (8.5-10.1); PHOSPHORUS 4.5 mg/dL (2.5-4.9)
[2018-05-02 08:00] VITALS: BP 126/60
--- NOTE | 2018-05-02 08:50 | NUR ---
cm consulted " my walker has been missing since i was brought over here for rehab on stretcher van, not sure where it went but need one for home"/alley. per insurance pt was just issue walker in 01/2018. cm team to check with [facility] outpt rehab to see if he possible left it there. " it has my name on it and blue and black bar on front, no tennis ball"/alley, viki updated.
--- NOTE | 2018-05-02 11:19 | HC ---
[facility] [place] [address] CONSULTATION Name: ALEXI CAMPBELL Room #: 513-P ADM IN M.R.#: [id number] Admission: 04/21/18 Attend Phys: Emerson Coker MD Discharge: Date of : 41 Report #: [id number] THIS REPORT FOR: //name// CC: Emerson PEÑA unknown DATE OF SERVICE: 04/22/2018 NEPHROLOGY CONSULTATION REASON FOR CONSULTATION: End-stage renal disease. HISTORY OF PRESENT ILLNESS: The patient is well known to us, is a peritoneal dialysis patient who was admitted at this hospital 2 months ago with recovery from CVA. We managed his peritoneal dialysis at that time and he did well. He has only been on dialysis for the last 5 months or so. The patient went home, was doing well, then had a relapse with hypoglycemia and worsening debility, ended up back in the hospital, had trouble with his PD catheter, which was apparently repositioned and now is back for rehabilitation. PAST MEDICAL HISTORY: Longstanding diabetes mellitus, hypertension, end-stage renal disease on chronic peritoneal dialysis overnight with ____ previous coronary bypass several decades ago, no subsequent angina, diabetes complicated by peripheral neuropathy, but not retinopathy. HOME MEDICATIONS: Please see current list. FAMILY HISTORY: Positive for heart disease in both parents, father also with diabetes. SOCIAL HISTORY: He is a remote smoker. No substantial alcohol, retired. REVIEW OF SYSTEMS: GENERAL: Currently he has been feeling well. EYES: Vision okay with corrective lenses. ENT: Hearing okay. No mouth sores. No problems with swallowing. ENDOCRINE: Positive for diabetes. RESPIRATORY: Denies shortness of breath, pleuritic pain, cough, or hemoptysis. CARDIAC: No chest pain, angina or arrhythmias. GASTROINTESTINAL: No nausea, vomiting, diarrhea or bloody stools. Appetite is good. GENITOURINARY: Continuing to make a good amount of urine without dysuria. NEUROLOGIC: Slight generalized weakness. MUSCULOSKELETAL: No arthritis. PSYCHIATRIC: No depression or anxiety. [facility] [address] [place] [address] CONSULTATION Name: ALEXI CAMPBELL Room #: 513-P [facility].#: [id number] Admission: 04/21/18 Attend Phys: Emerson Coker MD Discharge: Date of : 41 Report #: [id number] PHYSICAL EXAMINATION: GENERAL: This is a bright well-appearing gentleman in good spirits. SKIN: Unremarkable. SKELETAL: Well developed, well nourished. HEENT: Extraocular movements are full. No scleral icterus. Hearing and vision intact. Mucous membranes moist. Tongue, buccal mucosa benign. NECK: Supple, no lymphadenopathy or JVD. CHEST: Clear to auscultation. HEART: Regular without murmurs, gallops or rubs. ABDOMEN: Soft and nontender. Exit site looks good. EXTREMITIES: Show no peripheral edema. NEUROLOGIC: Intact. LABORATORY DATA: Hemoglobin 13.4. Sodium 135, potassium 4.5, chloride 99, bicarbonate 30, BUN 36, creatinine 6.3. ASSESSMENT AND PLAN: 1. End-stage renal disease, we will continue on peritoneal dialysis with ____ 2.5%, 80 minute dwells. 2. Status post cerebrovascular accident with debility here for rehabilitation. 3. Remote history of coronary artery bypass. <ELECTRONICALLY SIGNED> By: Jose Woods MD 05/02/18 1119 [id number] [id number] Jose Woods MD /nt
--- NOTE | 2018-05-02 12:28 | NUR ---
Nutrition: assess d/t LOS. Pt admitted for encephalopathy, hx of ESRD (on peritoneal diaylsis), DM2, CAD, HTN. Pt sleeping during attempted visit. Pt down 13 lbs since January. Per nursing, pt is eating well now. During previous admission, pt did not want any oral supplements. Possible d/c on 05/05/18. Physician has indicated severe PCM - RD will defer dx. Consider low risk.
--- NOTE | 2018-05-02 13:09 | NUR ---
ASSUMED CARE AT APPROX 0715. PATIENT A/O X4. HAS SOME BACK PAIN /, DENIES NEEDS FOR PRN PAIN MED NOW. C/O INGROWN TOENALS PAIN. WILL HAVE APPOINTMENT WITH DR. PEARCE, ENGINEERING LEADER AT 2PM. PT FILLED OUT HIS PAPERS BEFORE SEEING HER. WOUND CARE TO TOES COMPLETE. PATIENT PARTICIPATED IN THERAPY. VSS. RENAL PHYSICIAN ROUNDED, LASIX DECREASES TO 80MG DAILY NOW. PT WORKED WITH PHYSICAL THERAPIST NOW. HAD ONE EPISODE OF TREMOR ON LEFT HAND NOTICEABLE AND IT STOPPED WHEN PT SAT DOWN. DISCUSSED ABOUT S&S STROKE AND PT IS AWARE. PT HAS HX OF RIGHT CVA. AND SAID THEY HAS BEEN MONITOR BUT THERE ISN'T STROKE ACTIVITY NOTE. WILL CONTINUE TO MONITOR. HAD PERIONEAL DIALYSIS AFALL PRECAUTIONS IN PLACE. CONTINUE TO MONITOR.
[2018-05-02 20:53] VITALS: BP 146/48
--- NOTE | 2018-05-03 05:49 | NUR ---
up to bathroom x 1 assist using walker. slow steady gait. c/o neck pain, adequate pain relief with Voltaren topical med and PRN Tylenol given. unable to sleep well per patient. did receive temazapam, melatonin at bedtime. peritoneal dialysis in process.
[2018-05-03 08:04] VITALS: BP 161/56
--- NOTE | 2018-05-03 15:12 | NUR ---
ASSUMED CARE AT APPROX 0715. PATIENT A/O X4. REPORTS DIDN'T SLEEP GOOD LAST NIGHT EVEN TOOK SLEEPING AID. C/O NECK AND BACK PAIN 8/10. PRN TYLENOL AND VOTARENE GEL GIVEN, DIDN'T HELP. NOTIFIED JONO AND OBTAINED ORDERS FOR EXTRA TYLENOL AND METHOCARBOMOL. MEDS GIVEN, PAIN WENT DOWN TO 4/10 NOW. HEATING PAD APPLIED. OFFERED SUPPORTIVE CARE. VSS, LABS REVIEWED. BS MONITOR, INSULIN AND MEDS GIVEN ORDERED WITH APPLE SAUCE WITHOUT DIFFILCULTY. REASSESSMENT PER CHART. WOUND CARE ON TOES PER CHART. UP WITH ASSIST. HAD BM TODAY. WILL CONTINUE TO MONITOR. PRECAUTIONS IN PLACE. USES CALL LIGHT APPROPRIATELY. PT IS IN GOOD SPIRIT AND COOPERATIVE WELL WITH STAFF. HAD PERITONEAL DIALYSIS DAILY. CONTINUE TO MONITOR AND WILL GIVE REPORT TO NIGHT NURSE CONTINUE TO MONITOR PAIN, SLEEP.
[2018-05-03 19:32] VITALS: BP 134/57
[2018-05-04 04:23] LABS: ABSOLUTE NEUTROPHILS 5.6 thou/uL (1.4-8.2); BASOPHILS 1.6 % (0.0-2.0); EOSINOPHILS 3.5 % (0.0-3.0); MCH 29.2 pg (26.0-34.0); MCHC 32.3 g/dL (28.0-37.0); MCV 90.4 fL (80.0-100.0); MONOCYTES 8.4 % (1.0-8.0); PLATELET COUNT 500 thou/uL (150-400); POLYS 64.5 % (36.0-66.0); RBC 4.09 mil/uL (4.50-6.00); RDW 16.2 % (10.5-14.5); WBC 8.7 thou/uL (4.0-11.0)
[2018-05-04 04:33] LABS: MAGNESIUM 1.9 mg/dL (1.8-2.4); POTASSIUM 4.2 mmol/L (3.5-5.1)
--- NOTE | 2018-05-04 04:52 | NUR ---
RESTING WELL AFTER PAIM MEDS AND SLEEPING PILLS. PERITONEAL DIALYSIS INFUSING WITHOUT INCIDENT, UP TO BATHROOM WITH STANDBY ASSIST TO KEEP PD TUBING FROM GETTING TANGLED. AK PAD TO LOW BACK. TOE DRESSINGS CHANGED AND THEN PADDED WITH BANDAIDED COTTON BALLS TO RELIEVE PRESSURE FROM SOCKS.
[2018-05-04 07:43] VITALS: BP 182/77
--- NOTE | 2018-05-04 10:58 | NUR ---
ASSUMED CARES AT 0700. PT AWAKE, A/O*4. C/O MILD PAIN IN BILATERAL BIG TOES. INCISIONS ARE INTACT AND PINK, CLEANED AND DRESSING CHANGED. PT C/O NAUSEA THIS AM AFTER MEDICATION ADMINISTRATION, PT LAID DOWN WITH HOB ELEVATED FOR 15MINS AND VERBALISED RELIEF OF NAUSEA. VITALS REMAINED STABLE. DIALYSIS SITE DRY AND INTACT. ABDOMEN SLIGHTLY DISTENTED, PT C/O ABD DISCOMFORT, 1 MED BM THIS AM. BS ACTIVE *4. PT UP WITH 1 PERSON TRANSFER, GAITBELT AND WALKER AND TOLERATED WELL. Q1H VISUAL CHECKS. CALL LIGHT WITHIN REACH. FALL PRECAUTIONS IN PLACE
--- NOTE | 2018-05-04 12:38 | NUR ---
PT. IS MISSING HIS WALKER SINCE HE ARRIVED TO HOSPITAL FROM [facility]. NOTIFIED [facility] AND SPOKE WITH THERAPIST AND SHE SAID WHEN HE LEFT BY AMBULANCE THAT HIS TOOK WALKER WITH HER. DCP TO FOLLOW.
--- NOTE | 2018-05-04 15:10 | NUR ---
VARIANCE 15 MINUTES. PATIENT REFUSED TO PARTICIPATE IN COMMUNITY REINTEGRATION DUE TO FATIGUE AND NOT WANTING TO EXACERBATE PAIN IN HIS TOES WITH AMBULATION.
--- NOTE | 2018-05-04 15:10 | NUR ---
JOSELIN LEFT MESSAGE WITH PT CRISTOFER RT HORNE. JOSELIN NOTIFIED BY BEDSIDE NURSE THAT CRIST[facility]ER WAS HERE VISITED AND SHE SAID [facility] CALLED HER TO COME AND RATE REVIEWER ALEXI HORNE, IT WAS FOUND.
[2018-05-04 19:26] VITALS: BP 125/68
--- NOTE | 2018-05-05 04:23 | NUR ---
UP TO BATHROOM WITH SBA, GAIT BELT, AMD WALKER. PERITONEAL DIALYSIS CYCLER ON OVERNIGHT. HAS BEEN AWAKE SINCE 0200 DESPITE ROBAXIN, RESTORIL, TYLENOL, AND MELATONIN AT HS. PLANS TO GO HOME TODAY
[2018-05-05 07:45] VITALS: BP 182/70
--- NOTE | 2018-05-05 09:42 | EEG ---
[facility] [address] ELECTROENCEPHALOGRAM Name: ALEXI CAMPBELL Room #: 513-P ADM IN M.R.#: [id number] Admission: 04/21/18 Attend Phys: Emerson Coker MD Discharge: Date of : 43 Report #: [id number] THIS REPORT FOR: //name// CC: Emerson Coker [facility] unknown DATE OF SERVICE: 04/28/2018 This patient is being evaluated for altered mental status. EEG was done by placing the electrode by standard 10-20 system of electrode placement. Both referential and sequential montages were used for recording. Background activity in this patient's EEG is 10 Hz and 30 microvolt. It is a symmetrical activity. The patient goes to sleep that is associated with bilateral slowing and vertex sharp waves. Photic stimulation is unremarkable. Throughout the record, no active epileptiform activity was noticed. Mild intermixed theta range slowing was noticed, but that appeared to be secondary to drowsiness. IMPRESSION: This patient's EEG does not demonstrate any active epileptiform activity. Rather the EEG is rather well formed on both sides. Thank you very much for this referral. <ELECTRONICALLY SIGNED> By: Abilio Goins MD 05/05/18 0942 1544 1609 Abilio Goins MD /nt
[2018-05-05 09:48] VITALS: BP 182/70
[2018-05-05] MEDS ORDERED: METHOCARBAMOL500 M1 PO (10:04)
[2018-05-05] MEDS ORDERED: GENTAMICIN 0.1%15 G2 TOP (10:04)
[2018-05-05] MEDS ORDERED: CYMBALTA20 MG PO (10:04)
--- NOTE | 2018-05-05 10:34 | NUR ---
ASSUMED CARES AT 0700. PT ALERT, NO C/O'S OF PAIN. LATER IN AM, PT NOTED PAIN IN RLE, AND HYDROCODONE 1 TAB GIVEN PER REQUEST DURING OT ADL'S. INCISION INTACT WITH SUTURES, AND MINIMAL REDNESS. PER OT, REDRESSED FOLLOWING SHOWER. PT HAD LARGE HARD BM THAT REQUIRED MANUAL DISIMPACTION. PT TRANSFERRED WITH CGA OFF OS TOILET, AND STATED RELIEF. ENCOURAGED PT TO TAKE LAXATIVES AND STOOL SOFTENERS ORDERED, AND EAT FRUITS AND VEGETABLES.
--- NOTE | 2018-05-05 10:39 | NUR ---
PATIENT VERBALIZED EXCITEMENT REGARDING DC TO HOME TODAY. PT STATED THAT HIS WILL BE PRESENT AT 1200 TO TAKE HIM HOME. AWAITING DR. PEARCE TO ARRIVE AND DRESSING TO TOES TO BE CHANGED AFTER HE SEES PT.
[2018-05-05 11:08] VITALS: BP 179/79
[2018-05-05 12:00] VITALS: BP 170/59
--- NOTE | 2018-05-05 12:44 | NUR ---
TEAM MEETING CONT WITH SHELLEY AMADOR TODAY HOME WITH , HOME DIALYSIS AND HOME HEALTH.
--- NOTE | 2018-05-05 14:09 | NUR ---
ASSUMED PT CARE AT 0900. B/P [id number] HR 86 AT 0800. MORNING MEDS GIVEN. RECHECK B/P AT 1100. B/P 179/79. RECHECK AT 1200 170/59. NOTIFIED JONO AND DR. CARNES, NO NEW ORDER AT THIS MOMENT. REVIEWED DISCHARGE MEDICATIONS, APPOINTMENTS AND INSTRUCTION WITH PT AND HIS . [facility] COPY FROM DIALYSIS REPORT FAX TO THEM. WOUND CARE DONE ON TOES. NOTIFIED DR. PEARCE AND ORDERS FOR POST OP SHOES ORDERED. PHYSICAL THERAPIST WILL WALK AND CHECK PT TO WALK WITH POST OP SHOES BEFORE DISCHARGE. WILL CALL TRANSPORTATION TO HELP PT TO EXIT SOON. NEW PRESCRIPTIONS, HANDOUT FOR MEDICAL CONDITION HANDOUT PRINTED AND GAVE TO . H&P AND CONSULTS REPORT COPY FOR PT'S PCP AND NEUROLOGIST ORDERED. WILL CONTINUE TO MONITOR.
--- NOTE | 2018-05-05 14:22 | NUR ---
PT, DISCHARGING TODAY TO HOME WITH [facility]. FAXED DC ORDERS/SUMMARY TO FACILITY AND SPOKE WITH LUPIS IN ADM. AND THEY RECEIVED ORDERS AND WILL NOTIFY PT. TIME OF VISITS. THEY WILL PLAN ON SEEING PT. EITHER TOMORROW AM OR Wednesday05/07/18.
--- NOTE | 2018-05-06 10:45 | NUR ---
cm team received phone call from jael # [phone] hh stated " called to see if iv could be taken out today, pt not rakesh to be seen until wed or wednesday and this was ok with pt and viki"/jael gardner. cm called [facility] and spoke with viki and [facility] in background " we called spoke with n nurse last night and was told to have er or home health take it out and have question about lisinopril, yes he still has iv in right arm"/leandra. education that information will be passed on to team and will call them back at [phone].
--- NOTE | 2018-05-06 11:22 | NUR ---
RECIEVED CALL FROM JOSELIN LUBIN RN THAT THIS PATIENT'S HAD QUESTIONS ABOUT HIS MEDICATIONS AND IV. PATIENT WAS DISCHARGED YESTERDAY TO HOME WITH . PER JOSELIN, RN WILL NOT BE ABLE TO SEE PATIENT UNTIL WEDNESDAY OR MAYBE WEDNESDAY. CALLED CRISTOFER, PT'S , WHO STATED THAT THEY DID NOT HAVE A SCRIPT FOR THE LISINOPRIL. ALSO STATED THAT THE PT NEEDED TO HAVE IV REMOVED. DISCUSSED MEDICATION CONCERN WITH JONO GALAVIZ NP, WHO STATED THAT LISINOPRIL WAS LISTED A HOME MEDICATION, AND PT WAS TO INCREASE DOSE FROM 10 MG TO 20 MG AND FINISH WHAT HE HAD AT HOME. JONO STATED THAT I COULD CALL IN THE RX FOR LISINOPRIL 20 MG PO QD AMOUNT 30, NO REFILLS TO THEIR PHARMACY IF THEY DID NOT HAVE THIS MED AT HOME ALREADY. DISCUSSED IV WITH DAYANNA SILVA, THE PRIMER PRESS OPERATOR, WHO RECOMMENDED THAT THE PT COME BACK IN TO 5N AND THE PLASTIC INJECTION MOLD MAKER CAN REMOVE THE IV TODAY. CALLED PT'S CRISTOFER BACK WITH THIS INFORMATION AND SHE STATED THAT SHE WOULD BRING PT IN THIS AFTERNOON AFTER HER APPOINTMENT. PT'S GAVE THE NAME OF THEIR PHARMACY [facility] IN [place] AT [address]. LISINOPRIL WAS CALLED IN TO THIS PHARMACY.
--- NOTE | 2018-05-06 14:27 | NUR ---
PATIENT ARRIVED TO 5N. REMOVED IV ACCESS AND PLACED DRESSING. INFORMED PT THAT THE LISINOPRIL WAS CALLED TO THE [facility] ON [address] IN [place], AND THAT THE PHARMACIST INDICATED THAT IT WOULD BE READY THIS AFTERNOON. PT STATED THAT THE [employer] HAD ALREADY TEXTED THEM THAT IT WAS READY AND THEY PLANNED TO GO THERE NEXT TO PICK IT UP. PT ASSISTED TO HIS CAR BY [facility]TEER TRANSPORT.
--- NOTE | 2018-05-10 12:43 | H ---
[facility] [place] [address] HISTORY AND PHYSICAL Name: ALEXI CAMPBELL Room #: 513-P [facility] IN ..#: [id number] Admission: 04/21/18 Attend Phys: Emerson Coker MD Discharge: 05/05/18 Date of : 41 Report #: [id number] THIS REPORT FOR: //name// CC: Emerson Coker [facility] unknown DATE OF SERVICE: 04/21/2018 HISTORY OF PRESENT ILLNESS: This is a 72-year-old male known to our service from previous admission a few months prior. This patient was admitted to [facility] who presented with altered mental status and initial unresponsiveness. He was diagnosed with acute encephalopathy and felt contributed from hypoglycemia, and medications such as sedatives and Cymbalta and probable malfunction of his peritoneal dialysis catheter. It was surgically declogged and Interventional Radiology with wire manipulation, aggressive flushing and pigtail repositioning. His medications were adjusted. He was also found to have bilateral toe paronychia and started on doxycycline. He had electrolyte abnormalities with hypokalemia that was replaced. He also had complaints of right leg pain. The patient has past medical history of recent hemorrhagic stroke and myoclonic jerking movements that much improved after previous admission. The patient is now admitted to acute inpatient rehab for the above conditions and decline in functional mobility. Today, the patient is seen in his room. He complains of nausea during my visit. He started to have profuse vomiting of what appears to be a bile liquid. He had significant discomfort and was unable to stand. He denies constipation. He denies dysuria. His peritoneal dialysis catheter is functioning properly. He denies cough, shortness of air, chest pain. He denies other acute pain. PAST MEDICAL HISTORY: As listed above and end-stage renal disease, type 2 diabetes, coronary artery disease, peripheral arterial disease, obstructive sleep apnea with home CPAP, hypertension, asterixis, depression, hyperlipidemia, secondary hyperparathyroidism, gouty arthritis, anemia, BPH, folic acid deficiency. HABITS: The patient is a nonsmoker, nondrinker, no illicit drug use. CODE STATUS: Full code. SOCIAL HISTORY: Premorbidly the patient lived in a house with his . There is one flight of stairs from the garage into the main living. His bedroom and bathroom and all living is on 1 level. He was utilizing a 4-wheel walker, was able to perform ADLs independently. He and his share IADL responsibilities. He does not drive anymore. ALLERGIES: GABAPENTIN, IODINE, KEPPRA. [address] [address] HISTORY AND PHYSICAL Name: ALEXI CAMPBELL Room #: 513-P [facility] IN ..#: [id number] Admission: 04/21/18 Attend Phys: Emerson Coker MD Discharge: 05/05/18 Date of : 41 Report #: [id number] CURRENT MEDICATIONS: Procrit 20,000 units subcutaneous weekly, Lantus 24 units at bedtime subcutaneous, Zofran 4 mg q.6 hours p.r.n., senna S 1 tablet daily, potassium chloride 20 mEq t.i.d., MiraLax 17 g daily, lisinopril 10 mg daily, Cymbalta 60 mg daily, Plavix 75 mg daily, vitamin D 1000 units daily, Norvasc 10 mg daily, allopurinol 50 mg daily, Renvela 2400 mg with meals, trazodone 25 mg at bedtime, 500 mg at bedtime, metoprolol 25 mg twice a day, Lasix 80 mg twice a day, doxycycline 100 mg twice a day, Lipitor 10 mg at bedtime, [place] 5/325 one tablet q.4 hours p.r.n., senna 8.6 mg daily p.r.n., milk of mag 10 mL daily p.r.n., Colace 100 mg twice a day p.r.n., bisacodyl 10 mg at bedtime rectally p.r.n., Tylenol 650 q.4 hours p.r.n. REVIEW OF SYSTEMS: Remainder of his 14-point review of systems is negative except as listed in HPI. PHYSICAL EXAMINATION: VITAL SIGNS: 161/68, respirations 18, pulse of 86, temperature 97.8, O2 sat 100% on room air. GENERAL: He is awake, alert. He is oriented x 4. He is in no acute distress. He is very pleasant. HEENT: Head is normocephalic. Eyes: EOMs are intact with no icterus. ENT: No sinus tenderness, no pharyngitis, no rhinorrhea. NECK: No lymphadenopathy. CARDIOVASCULAR: S1, S2 regular rate and rhythm. CHEST: Lungs are clear to auscultation bilaterally with no crackles, no wheeze. ABDOMEN: Bowel sounds are positive. He is soft, nontender, nondistended. GENITOURINARY: No CVA tenderness. He does have his peritoneal dialysis catheter. Site appears intact. EXTREMITIES: Has no pedal edema. He has functional range of motion of upper and lower extremities. His myoclonic jerking/asterixes is significantly improved from 2 months ago. He has negative Homans sign. Able to lift bilateral lower extremities antigravity, sit to stand with contact guard assist. NEUROLOGIC: Facies equal and symmetrical. No slurred speech. MILD-MOD COGNITIVE DEFICITS SKIN: Warm, dry and intact. Paronychia to bilateral toes. PSYCHIATRIC: Pleasant affect. LABORATORY DATA: From 04/22/2018, WBC is 10.0, hemoglobin 13.4, hematocrit 42.9, platelets 697. Sodium 135, potassium 4.5, BUN 36, creatinine 6.3, glucose 162, calcium 9.0. ASSESSMENT: 1. Acute encephalopathy. 2. Hypoglycemia. 3. End-stage renal disease, on peritoneal dialysis. 4. Type 2 diabetes mellitus. [address] [address] HISTORY AND PHYSICAL Name: ALEXI CAMPBELL Room #: 513-P [facility] IN ..#: [id number] Admission: 04/21/18 Attend Phys: Emerson Coker MD Discharge: 05/05/18 Date of : 41 Report #: [id number] 5. Recent right thalamic hemorrhagic cerebrovascular accident. 6. Premorbid peripheral neuropathy. 7. Bilateral paronychia, on antibiotics. 8. Premorbid myoclonic jerking significantly improved. 9. Coronary artery disease, status post history of coronary artery bypass graft. 10. Peripheral arterial disease. 11. Hypertension. 12. Obstructive sleep apnea with home CPAP. 13. Hyperlipidemia. PLAN: The patient is admitted to acute inpatient rehab for physical, occupational and speech therapies. Hospitalist services has been consulted for acute medical management along with neuropsychology. We will consult Nephrology to manage his peritoneal dialysis needs. He will have a wound care consult for his toes. He will remain on doxycycline for the time being. Hospitalist services has ordered a KUB of his abdomen for the nausea and vomiting this morning. We will follow up on results. Blood sugars have been stable with no further hypoglycemic events. Please see extensive orders. <ELECTRONICALLY SIGNED> By: NATHAN Neumann 05/10/18 [id number] NATHAN Neumann /nt
== END 2018-05-05 15:09 | disposition home health service (06) | DRG 70 ==
LOC: ENTRNSPT 05-05 14:25 → EDTRNSPTSTS 05-05 14:29
PROVIDERS: Hospitalist; Internal Medicine Nephrology; Nurse Practitioner; Nurse Practitioner Family; Psychiatry & Neurology Neuromuscular Medicine; ADMIT Physical Medicine & Rehabilitation
PROC: 3E1M39Z Irrigation of Peritoneal Cavity using Dialysate, Percutaneous Approach (ICD-10-PCS; principal; 2018-04-21)
PROC: 3E1M39Z Irrigation of Peritoneal Cavity using Dialysate, Percutaneous Approach (ICD-10-PCS; 2018-04-22)
PROC: 3E1M39Z Irrigation of Peritoneal Cavity using Dialysate, Percutaneous Approach (ICD-10-PCS; 2018-04-23)
PROC: 3E1M39Z Irrigation of Peritoneal Cavity using Dialysate, Percutaneous Approach (ICD-10-PCS; 2018-04-24)
PROC: 3E1M39Z Irrigation of Peritoneal Cavity using Dialysate, Percutaneous Approach (ICD-10-PCS; 2018-04-25)
PROC: 3E1M39Z Irrigation of Peritoneal Cavity using Dialysate, Percutaneous Approach (ICD-10-PCS; 2018-04-26)
PROC: 3E1M39Z Irrigation of Peritoneal Cavity using Dialysate, Percutaneous Approach (ICD-10-PCS; 2018-04-27)
PROC: 3E1M39Z Irrigation of Peritoneal Cavity using Dialysate, Percutaneous Approach (ICD-10-PCS; 2018-04-28)
PROC: 3E1M39Z Irrigation of Peritoneal Cavity using Dialysate, Percutaneous Approach (ICD-10-PCS; 2018-04-29)
PROC: 3E1M39Z Irrigation of Peritoneal Cavity using Dialysate, Percutaneous Approach (ICD-10-PCS; 2018-04-30)
PROC: 3E1M39Z Irrigation of Peritoneal Cavity using Dialysate, Percutaneous Approach (ICD-10-PCS; 2018-05-01)
PROC: 3E1M39Z Irrigation of Peritoneal Cavity using Dialysate, Percutaneous Approach (ICD-10-PCS; 2018-05-02)
PROC: 3E1M39Z Irrigation of Peritoneal Cavity using Dialysate, Percutaneous Approach (ICD-10-PCS; 2018-05-03)
PROC: 3E1M39Z Irrigation of Peritoneal Cavity using Dialysate, Percutaneous Approach (ICD-10-PCS; 2018-05-04)
DX: G93.41 Metabolic encephalopathy (principal); N18.6 End stage renal disease; E43 Unspecified severe protein-calorie malnutrition; I12.0 Hypertensive chronic kidney disease with stage 5 chronic kidney disease or end stage renal disease; N25.81 Secondary hyperparathyroidism of renal origin; E11.22 Type 2 diabetes mellitus with diabetic chronic kidney disease; E11.42 Type 2 diabetes mellitus with diabetic polyneuropathy; R53.81 Other malaise; I25.10 Atherosclerotic heart disease of native coronary artery without angina pectoris; L03.032 Cellulitis of left toe; L97.529 Non-pressure chronic ulcer of other part of left foot with unspecified severity; L97.519 Non-pressure chronic ulcer of other part of right foot with unspecified severity; E11.649 Type 2 diabetes mellitus with hypoglycemia without coma; E11.51 Type 2 diabetes mellitus with diabetic peripheral angiopathy without gangrene; G47.33 Obstructive sleep apnea (adult) (pediatric); E78.5 Hyperlipidemia, unspecified; F43.21 Adjustment disorder with depressed mood; R41.9 Unspecified symptoms and signs involving cognitive functions and awareness; M10.9 Gout, unspecified; D64.9 Anemia, unspecified; E11.69 Type 2 diabetes mellitus with other specified complication; Y84.1 Kidney dialysis as the cause of abnormal reaction of the patient, or of later complication, without mention of misadventure at the time of the procedure; E87.5 Hyperkalemia; E87.6 Hypokalemia; G25.3 Myoclonus; G47.00 Insomnia, unspecified; N40.0 Benign prostatic hyperplasia without lower urinary tract symptoms; L03.031 Cellulitis of right toe; R27.8 Other lack of coordination; F32.9 Major depressive disorder, single episode, unspecified; Z79.4 Long term (current) use of insulin; Z99.2 Dependence on renal dialysis; Z95.1 Presence of aortocoronary bypass graft; Z86.73 Personal history of transient ischemic attack (TIA), and cerebral infarction without residual deficits; Z87.891 Personal history of nicotine dependence; Z88.8 Allergy status to other drugs, medicaments and biological substances; Z91.041 Radiographic dye allergy status; Z79.899 Other long term (current) drug therapy; Z83.3 Family history of diabetes mellitus; Z82.49 Family history of ischemic heart disease and other diseases of the circulatory system; Z79.02 Long term (current) use of antithrombotics/antiplatelets; Z68.28 Body mass index [BMI] 28.0-28.9, adult
CPT/HCPCS: 10112; 33000